=== PATIENT | male | born 1955 | race Caucasian/White ===

== ENCOUNTER 2021-08-25 08:36 | Outpatient (REF) | payer BC, SELFPAY ==
[2021-08-25 11:10] LABS: MANUAL DIFF FLAG NO
[2021-08-25 11:18] LABS: Basophils Percent Auto 0.5 % (0-2); Eosinophils Absolute Auto 0.1 X10*3/uL (0.0-0.4); Eosinophils Percent Auto 1.5 % (0-4); Hematocrit 43.3 % (42.0-52.0); Hemoglobin 14.2 g/dl (14.0-18.0); Imm Gran Abs Auto 0.01 X10*3/uL (0.00-0.03); Imm Gran Pct Auto 0.2 % (0.0-0.4); Lymphocytes Absolute Auto 1.8 X10*3/uL (1.2-4.9); Lymphocytes Percent Auto 31.2 % (20-40); Mean Corpuscular HGB Conc 32.8 g/dl (31.0-36.0); Mean Corpuscular Hemoglobin 31.4 pg (27.0-33.0); Mean Corpuscular Volume 95.8 fL (80.0-98.0); Mean Platelet Volume 11.5 fL (9.4-12.4); Monocytes Absolute Auto 0.6 X10*3/uL (0.1-1.2); Monocytes Percent Auto 9.8 % (2-11); Neutrophils Absolute Auto 3.3 x10*3/uL (2.0-8.3); Neutrophils Percent Auto 56.8 % (45-73); Platelet Count 273 X10*3/uL (160-400); Red Blood Count 4.52 X10*6/uL (4.60-5.80); Red Cell Distribution Width 12.8 % (11.0-16.0); White Blood Count 5.8 X10*3/uL (4.8-10.8)
[2021-08-25 11:25] LABS: Appearance Urine CLEAR; Color Urine YELLOW; Glucose Urine UA NEG (NEG); Leukocyte Esterase Urine NEG (NEG); Nitrite Urine NEG (NEG); Specific Gravity - Urine >= 1.030 (1.005-1.025); Urine Blood NEG (NEG); Urine Ketones NEG (NEG); Urine Protein NEG (NEG-TRACE)
[2021-08-25 12:07] LABS: Alanine Aminotransferase 19 U/L (0-40); Albumin Level 4.4 g/dL (3.5-5.0); Alkaline Phosphatase 78 U/L (39-117); Anion Gap 11 (12-20); Aspartate Amino Transferase 23 U/L (5-37); Bilirubin Total 0.6 mg/dL (0.0-1.0); Blood Urea Nitrogen 18 mg/dL (9-16); Calcium 10.5 mg/dL (8.4-10.2); Carbon Dioxide 28 mmol/L (22-29); Chloride 107 mmol/L (96-108); Cholesterol 183 mg/dL; Estimated Glomerular Filt Rate 56; Glucose Fasting 93 mg/dL (60-99); HDL Cholesterol 50 mg/dL; LDL Cholesterol Calculated 112 mg/dl; PSA,Total (Free>4and<10) 0.46 ng/mL (0.00-4.00); Potassium 4.4 mmol/L (3.3-5.1); Sodium 142 mmol/L (135-145); Thyroid Stimulating Hormone 1.72 uIU/mL (0.32-4.0); Total Protein 7.1 g/dL (6.5-8.0); Triglycerides 107 mg/dL; Vitamin D 25-OH Total 21.3 ng/mL (>30)
== END 2021-08-25 08:37 | disposition home or self-care (01) ==
LOC: HO.HMGCLDS 08:36
PROVIDERS: PCP Internal Medicine; Visit Provider Internal Medicine
DX: Z00.00 Encounter for general adult medical examination without abnormal findings (principal); Z12.5 Encounter for screening for malignant neoplasm of prostate; I10 Essential (primary) hypertension; E78.00 Pure hypercholesterolemia, unspecified
CPT/HCPCS: 36415; 80053; 80061; 81003; 82306; 84153; 84443; 85025

== ENCOUNTER 2024-03-14 09:25 | Inpatient (IN) | payer BC, SELFPAY ==
[2024-03-14] VITALS (18 sets, daily range): BP systolic 113–191; BP diastolic 61–105; PULSE 66–110; RESP 12–18; TEMP 36.3–36.8; O2SAT 95–99; BMI 21.2
--- NOTE | ~2024-03-14 | MR_ITS ---
EXAMINATION: MR BRAIN WITHOUT CONTRAST CLINICAL INFORMATION: Rule out stroke COMPARISON: CTA head and neck 03/14/2024 TECHNIQUE: Multiplanar multisequence MR imaging of the brain was obtained without intravenous contrast. FINDINGS: There is a small acute cortical and subcortical infarct involving the left precentral gyrus in the region of the hand knob. No other reduced diffusion. There is no intracranial hemorrhage on iron-sensitive imaging. No extra-axial collection or mass effect/herniation. There are several scattered foci of nonspecific supratentorial white matter T2/FLAIR signal abnormality. Small chronic left cerebellar lacunar infarct. No hydrocephalus. Mild generalized cerebral volume loss with commensurate sulcal and ventricular prominence. The major flow voids at the skull base are preserved. The midline structures are normal. The cerebellar tonsils are normally positioned. The craniocervical junction is normal. Marrow signal is within normal limits. The visualized soft tissues are without significant abnormality. The left maxillary sinus is completely opacified and atelectatic. MR/MR head/brain wo con IMPRESSION: Small acute infarct of the left precentral gyrus in the region of the hand knob.
--- NOTE | ~2024-03-14 | CT_ITS ---
EXAMINATION: CT angio head neck stroke CLINICAL INFORMATION: Right hand and weakness. COMPARISON: CT head 03/14/2024. TECHNIQUE: Hand Or Machine Paster images were obtained. A CT angiogram of the head and neck was performed in the arterial phase after the intravenous administration of 70 mL Omnipaque 350. Delayed postcontrast images of the head were also obtained. 3D images were processed on an independent workstation under concurrent supervision. Arterial stenoses are measured in accordance with NASCET criteria or similar method if applicable. This CT examination was performed using dose optimization techniques as appropriate, including one or more of the following: Automated exposure control, iterative reconstruction, and adjustment of technique factors (mA and/or kVp) according to patient size (this includes techniques or standardized protocols for targeted exams where dose is matched to indication/reason for exam). Fleischner Society criteria for the followup of incidental pulmonary nodules was implemented if appropriate. Total exam dose-length product 1429 mGy-cm FINDINGS: Head: Postcontrast images reveal no abnormal intracranial mass or enhancement. There is no intracranial mass effect or midline shift. Lateral and third ventricles are normal. No hydrocephalus. A few scattered nonspecific foci of hypoattenuation are visualized within the periventricular white matter and cerebellum. Smith-white matter differentiation is otherwise preserved and there is no evidence of acute territorial infarct. The calvarium and skull base are intact. Mastoid air cells and middle ear cavities are well aerated. The left maxillary sinus is completely opacified and atelectatic. CT angiogram neck: The aortic arch apex is normal. Origins of the major aortic branches are widely patent. Common carotid arteries are normal. Partially calcified atheromatous plaque involves both carotid bifurcations. There is a subtle beaded irregular contour of both extracranial internal carotid arteries and the cervical vertebral arteries at their the V2-V3 junctions suggesting the possibility of underlying fibromuscular dysplasia. No stenosis of the extracranial internal carotid arteries. The cervical segments of the vertebral arteries are widely patent. CT angiogram head: Intracranial internal carotid arteries are patent. Intradural vertebral artery segments and basilar artery are patent. Anterior, middle, and posterior cerebral artery complexes are normal. No intracranial large vessel occlusion. No identifiable aneurysm or high flow vascular lesion. Other: Soft tissues of the neck including the thyroid gland are normal. No pathologically enlarged cervical lymph nodes. Visualized lung apices are clear. No acute osseous finding. Specifically no worrisome lytic or blastic osseous lesion. There is multilevel degenerative spondylosis of the cervical spine with slight anterolisthesis of C7 on T1 related to facet degenerative changes at this level. CT/CT angio head neck stroke IMPRESSION: There are a few scattered chronic small vessel ischemic changes within the periventricular white matter and cerebellum. No evidence of acute territorial infarct or hemorrhage. No abnormal intracranial mass or enhancement. There is a subtle beaded irregular contour of both extracranial internal carotid arteries and the cervical vertebral arteries at their V2-V3 junctions suggesting the possibility of underlying fibromuscular dysplasia. Otherwise no stenosis of the cervical carotid or vertebral arteries. No intracranial large vessel occlusion. This critical result was discussed with Beatriz Luis at 10:09 AM on 03/14/2024 and it was ascertained that the content and urgency of the report was understood at the time of direct communication.
--- NOTE | ~2024-03-14 | CT_ITS ---
EXAMINATION: CT HEAD WITHOUT CONTRAST (STROKE PROTOCOL) CLINICAL INFORMATION: Stroke protocol. Right hand weakness COMPARISON: None available. TECHNIQUE: Contiguous axial imaging was performed from the skull base to vertex without intravenous administration of contrast. This CT examination was performed using dose optimization techniques as appropriate, variously including the following: *Automated exposure control *Adjustment of mA and/or kV according to patient size (this includes techniques or standardized protocols for targeted exams where dose is matched to indication/reason for exam; i.e. extremities or head) *Use of iterative reconstruction technique DLP: 617 mGy-cm FINDINGS: There is no evidence for an extra-axial collection. There is no evidence for intra-or extra-axial hemorrhage. The ventricles and extra-axial CSF spaces are appropriate. Smith-white matter differentiation is normal. No mass, mass effect or infarct is seen. Review of bone windows is normal. No skull fracture. There is a severe left maxillary sinus disease with complete soft tissue opacification. Sinuses mastoid air cells and middle ears are otherwise clear. CT/CT head for stroke IMPRESSION: No acute intracranial findings. Left maxillary sinus disease. This critical result was discussed with Dr. Kirkland at 0945 hours on 03/14/2024. It was ascertained that the content and urgency of the report was understood at the time of direct communication.
--- NOTE | 2024-03-14 07:00 | CA_ITS ---
Transthoracic Echocardiogram Patient (Last, First, Middle): Narinder Henriquez A Gender: Male Date of : 1955 Age: 68 Procedure Date: 03/14/2024 Procedure Type: Transthoracic Echocardiogram Location: ICU Height: 177.8 cm Weight: 66.68 kg BSA: 1.83 m2 Heart Rate: 77 bpm BP: 149 / 77 mmHg Intern Retail: STORM Referring MD: Vincent Soto MD Absorption Plant Operator Helper: Po Wilcox MD Symptoms: stroke Study Quality: Adequate ECG Rhythm: Sinus Conclusions: - 1. Normal LV ejection fraction of 60 65% 2. Mild calcific changes of the aortic and mitral valve with normal cardiac valvular Doppler 3. Mildly dilated ascending aorta 4. No gross pericardial effusion Findings Left Ventricle Normal left ventricular size, thickness, and systolic function. The visually estimated ejection fraction is between 60-65%. Spectral Doppler is indicative of a normal filling pattern. Right Ventricle Normal right ventricular cavity size and systolic function. Atria Both atria are normal in size. Interatrial shunt cannot be excluded. Aortic Valve There is mild calcification of the aortic valve. There is no aortic valve stenosis. There is no aortic valve regurgitation. Mitral Valve There is mild anterior and posterior mitral leaflet thickening. There is mild mitral annular calcification. There is trace mitral valve regurgitation. There is no mitral valve stenosis. Pulmonic Valve The pulmonic valve was not well visualized. Tricuspid Valve Likely normal tricuspid valve structure and function. There is trace tricuspid valve regurgitation. The right ventricular systolic pressure is normal. The right ventricular systolic pressure is 15 mmHg. Normal right atrial pressure. There is no evidence of pulmonary hypertension. Great Vessels The aorta was not well visualized. The pulmonary artery was not well visualized. Venous The inferior vena cava is normal in size and collapses greater than 50% with inspiration. Pericardium/Pleural There is no evidence of pericardial effusion. Prior Study Comparison No prior study available for comparison. Measurements 2D Linear Measurements IVSd: 1.05 0.6-0.9/0.6-1.0 cm LVIDd: 4.07 3.9-5.3/4.2-5.9 cm LVIDd Index: 2.22 2.4-3.2/2.2-3.1 cm/m2 LVIDs: 2.51 2.0-3.6 cm LVPWd: 0.57 0.7-1.1 cm LA Diam: 3.00 2.7-3.8/3.0-4.0 cm LAIDs Index: 1.64 1.5-2.3 cm/m2 LV Mass: 121.67 67-162/88-224 g LV Mass Index: 66.49 43-95/49-115 g/m2 LVOT Diam: 2.30 3.0+(-)1.3 cm 2D Systolic Function EF 4C: 60.30 >55% EF 2C: 65.10 >55% EF BiP: 62.20 >55% Mitral Valve MV Pk E: 0.76 MV PK A: 0.49 MV Decel Time: 189.00 E/A: 1.50 E'Lateral: 11.40 E'Medial: 7.83 E/E' Med: 9.70 E/E' Lat: 6.60 PHT: 55.00 MVA PHT: 4.00 Decel [place]: 4.02 Aortic Valve AoV Pk Jaylon: 1.15 AoV Pk Grad: 5.00 MONSERRAT: 3.83 LVOT LVOT Pk Jaylon: 1.03 LVOT Mn Jaylon: 0.68 LVOT VTI: 0.23 LVOT Pk Grad: 4.00 LVOT Mn Grad: 2.00 LVOT Diam: 2.30 LVOT Area: 4.15 Diastolic Function MV Pk E: 0.76 MV Pk A: 0.49 E/A: 1.50 E'Medial: 7.83 E/E' Med: 9.70 E' Laterial: 11.40 E/E' Lat: 6.60 Right Ventricle TAPSE (mm): 24.80 TVS' Jaylon: 15.50 Tricuspid Valve TR Pk Jaylon: 1.73 TR Pk Grad: 12.00 RA Press: 3.00 RVSP: 15.00 Great Vessels Aorta Sinus of Valsalva: 3.40 2.0-3.5 cm Ao Asc: 3.70 2.1-3.4 cm Ao Arch: 2.30 Ao Desc: 2.10 Pulmonary Veins Pulm Vein S/D 1.50 Pulmonary Valve PV Pk Jaylon: 0.95 Peak PV Grad: 4.00 Updated in Other Vendor System with Status of Final Po Wilcox MD electronically signed on 03/14/2024 2:59:24 PM with status of Final
--- NOTE | 2024-03-14 09:33 | ECG_ITS ---
Test Reason : r/O Stroke Blood Pressure : / mmHG Vent. Rate : 087 BPM Atrial Rate : 087 BPM P-R Int : 156 ms QRS Dur : 090 ms QT Int : 360 ms P-R-T Axes : 081 049 053 degrees QTc Int : 433 ms Normal sinus rhythm with sinus arrhythmia Nonspecific ST abnormality Abnormal ECG No previous ECGs available Referred By: Beatriz Luis Electronically Signed By:BOBBY MIRELES MD
--- NOTE | 2024-03-14 09:35 | ED_ITS ---
HPI - Neuro Symptoms/Deficit General Chief Complaint: Stroke Stated Complaint: feels like having a stroke r hand unable to photographer Time Seen by Provider: 03/14/24 09:32 Source: patient Mode of arrival: ambulatory Limitations: no limitations History of Present Illness ED Provider: LAUREL SMITH Narrative: 68 yo male with HTN and HLD not on thinners woke up this AM around 630am feeling fine made tea and watched TV then noted around 830am he had abrupt onset R hand weakness and unable to grasp or hold his mug. This has never happened before. He has no headaches, trauma, hx of carpal tunnel. He has never had a stroke before but is worried. He is R hand dominant. He has no dizziness when walking. No slurred speech and no headache. Onset (ago): hour(s) (830am) Last Observed Normal: 08:30 Location: right arm History of same: No Severity: moderate Quality: weak Relieving factors: none Exacerbating factors: none Context: sudden onset On Anticoagulants: No Associated symptoms: denies other symptoms Treatments Prior to Arrival: none Related Data Allergies Allergy/AdvReac Type Severity Reaction Status Date / Time No Known Allergies Allergy Verified 03/14/24 09:59 Review of Systems 2 Review of Systems: Constitutional : No Fever, No Chills, No Fatigue ENT/Mouth : No sore throat, No Rhinorrhea Eyes: No Eye Pain, No Swelling, No Redness Cardiovascular : No Chest Pain, No SOB, No Dyspnea on Exertion Respiratory : No Cough, No Sputum Gastrointestinal : No Nausea, No Vomiting, No Diarrhea, No abdominal Pain Genitourinary : No Dysuria, No Urinary Frequency, No Hematuria, Musculoskeletal : No joint pain, No Myalgias, No Joint Swelling Skin : No Skin Lesions, No rash Neuro : pos Weakness, No Numbness, No Dizziness, no Headache Psych : No Anxiety/Panic, No Depression All other systems reviewed and are negative [facility] Past Medical History Attestation statement: The following information was validated with the patient. Medical History Hyperlipidemia HTN (hypertension) Social History Social History (Updated 03/14/24 @ 09:56 by Beatriz Luis DO) Patient Tobacco Use Status: Never used Tobacco Physical Exam 2 Vital Signs: Vital Signs: Last Vital Signs Temp 97.6 F 03/14/24 10:05 Pulse 96 03/14/24 10:05 Resp 15 03/14/24 10:05 BP 165/83 H 03/14/24 10:05 Pulse Ox 99 03/14/24 10:05 O2 Del Method Room Air 03/14/24 10:05 BMI result Body Mass Index 21.2 Appearance: Alert. Oriented X3. No acute distress. Eyes: Pupils equal, round and reactive to light. ENT: Pharynx normal. Neck: Normal inspection. Neck supple. CVS: Normal heart rate and rhythm. Pulses normal. Respiratory: No respiratory distress. Breath sounds normal. Abdomen: Soft and nontender. Skin: Skin warm and dry. Normal skin color. Normal skin turgor. Extremities: No lower extremity edema. No calf ttp Neuro: Oriented X 3. R hand noticeably weaker sensation intact BRC in all digits 2+ radial pulse No sensory deficit. CN2-12 intact Course Course Course Narrative: BP 190/100 initial on recheck (initial done during IV line) 140 systolic and diastolic in 80s coags normal no hx of bleeding discussed TNK with him will order - there are no known contraindications or risks of bleeding after discussion with patient Dr. Andrews aware give TNK given onset known weakness 951am Reevaluation(s) Reevaluation #1: BP stable the patient is improving no longer using shoulder to improve still slight weakness R hand but improving Medications Administered Discontinued Medications Generic Name Dose Route Start Last Admin Trade Name Freq PRN Reason Stop Dose Admin Iohexol 100 ml 03/14/24 09:58 03/14/24 09:58 Iohexol 350 Mg/Ml 100 Ml Infus..Btl IV 03/14/24 09:59 70 ml ONCE ONE Administration Labetalol HCl 10 mg 03/14/24 09:39 03/14/24 10:08 Labetalol Hcl 100 Mg/20 Ml Vial IVPUSH 03/14/24 09:40 Not Given ONCE ONE Tenecteplase 17 mg 03/14/24 09:42 03/14/24 10:09 Tenecteplase 50 Mg/10 Ml Kit IVPUSH 03/14/24 09:43 17 mg ONCE ONE Administration Medical Decision Making Medical Decision Making MDM Narrative: 68 yo male with PMH of HTN, HLD here with onset of R hand weakness which is dominant hand at 830am - he was fine upon waking and noticed it trying to grab his mug. He has no other symptoms he is not on blood thinners, normal pulse, no signs of infection, no numbness on exam, no wrist drop. He is using his shoulder to try to pull you in and grasp he has NIH of 2 - stroke protocol, neuro consult, possible TNK Differential Diagnosis Differential Diagnoses: The differential diagnosis associated with the presentation includes stroke, doubt peripheral cause has no numbness, pulses intact BCR was acute in onset Admission/Observation Consideration of admission/observation: Escalation of care including admission/observation considered admit to ICU Consult Healthcare Provider Management of the patient was discussed with: Non Destructive Testing Inspector call to neurology 944am Dr. Soto to admit patient Lab Data [facility] Lab Attestation statement: I reviewed the patient's lab results. 03/14/24 09:39 03/14/24 09:39 Labs: Lab Results 03/14/24 03/14/24 03/14/24 Range/Units 09:32 09:33 09:39 WBC 5.4 (4.8-10.8) X10*3/uL RBC 4.74 (4.60-5.80) X10*6/uL Hgb 15.2 (14.0-18.0) g/dl Hct 44.3 (42.0-52.0) % MCV 93.5 (80.0-98.0) fL MCH 32.1 (27.0-33.0) pg MCHC 34.3 (31.0-36.0) g/dl RDW 12.9 (11.0-16.0) % Plt Count 284 (160-400) X10*3/uL MPV 10.5 (9.4-12.4) fL Immature Gran % (Auto) 0.2 (0.0-0.4) % Neut % (Auto) 58.7 (45-73) % Lymph % (Auto) 31.6 (20-40) % [place] % (Auto) 7.5 (2-11) % Eos % (Auto) 1.1 (0-4) % Baso % (Auto) 0.9 (0-2) % Lymph # (Auto) 1.7 (1.2-4.9) X10*3/uL [place] # (Auto) 0.4 (0.1-1.2) X10*3/uL Eos # (Auto) 0.1 (0.0-0.4) X10*3/uL Baso # (Auto) 0.1 (0.0-0.2) X10*3/uL Abs Immat Gran (auto) 0.01 (0.00-0.03) X10*3/uL Absolute Neuts (auto) 3.2 (2.0-8.3) x10*3/uL Absolute Nucleated RBC 0.000 (0.0-0.012) X10*3/uL Nucleated RBC % (auto) 0.0 (0.0-0.2) /100WBC PT 10.9 L (11.1-13.3) SEC Whole Blood PT 12.3 (11.1-13.5) sec INR 0.9 (0.9-1.1) Whole Blood INR 1.0 (0.9-1.1) APTT 34.5 (26.0-36.8) SEC Sodium 141 (135-145) mmol/L Potassium 4.2 (3.3-5.1) mmol/L Chloride 106 (96-108) mmol/L Carbon Dioxide 27 (22-29) mmol/L Anion Gap 12 (12-20) BUN 19 H (9-16) mg/dL Creatinine 1.34 (0.5-1.4) mg/dL Estim Creat Clear Calc 48.6 Estimated GFR 53 POC Glucose 113 (60-115) mg/dL Random Glucose 121 H (60-115) mg/dL Estimat Average Glucose 108 mg/dL Hemoglobin A1c % 5.4 (<6.0) % Calcium 11.2 H D (8.4-10.2) mg/dL Magnesium 2.1 (1.6-2.6) mg/dL Total Bilirubin 0.7 (0.0-1.0) mg/dL Direct Bilirubin 0.2 (0.0-0.5) mg/dL AST 25 (5-37) U/L ALT 21 (0-40) U/L Alkaline Phosphatase 71 (39-117) U/L C-Reactive Protein < 0.04 (< or = 0.50) mg/dL Total Protein 7.5 (6.5-8.0) g/dL Albumin 4.6 (3.5-5.0) g/dL Triglycerides 107 (<150) mg/dL Cholesterol 194 (<200) mg/dL LDL Cholesterol, Calc 118 H (<100) mg/dL HDL Cholesterol 55 (>40) mg/dL Independent Interpretation I performed an independent interpretation of an: EKG and CT Scan Interpretation: Rate: 87 Rhythm: NSR [place]: normal Normal P waves. Normal AYAZ. Normal QRS complex. ST T wave : nonspecific ST T wave abnormality in lateral leads but no MARYELLEN qTC: 433 prior studies: no acute ischemia The study has been interpreted contemporaneously by me. . Radiology Impression Discussion of test interpretation with radiology: I discussed test interpretation with the radiologist and I have reviewed the radiologist's reading. Radiologist Impression: 944am - initial non CT head negative no ICH bad L mastoid sinus disease 1009am CTA negative for LVO Independent Historian Clinical information obtained from an independent historian. History obtained from or confirmed by: Spouse NIH Stroke Scale Internal: Initial- Upon Arrival Level of Consciousness: Alert Level of Consciousness Questions: Answers both questions correctly Level of Consciousness Commands: Performs both tasks correctly Best Gaze: Normal Visual: No visual loss Facial Palsy: Normal Motor Arm (Right): Some effort against gravity Motor Arm (Left): No drift Motor Leg (Right): No drift Motor Leg (Left): No drift Limb Ataxia: Absent Sensory: Normal Best Language: No aphasia Dysarthia: Normal Extinction and Inattention: No abnormality Score: 2 Critical Care Time Critical Care Time Critical Care Time: Yes Total Critical Care Time: 35 Attestation: stroke protocol, consult, admit to ICU Discharge Plan Discharge Clinical Impression: Right arm weakness Patient Disposition: Admitted As Inpatient Print Language: Romanian
[2024-03-14 09:38] LABS: Glucose, Whole Blood 113 mg/dL (60-115)
[2024-03-14 09:39] LABS: Prothrombin Time Whole Bld POC 12.3 sec (11.1-13.5)
[2024-03-14 09:49] LABS: MANUAL DIFF FLAG NO
[2024-03-14 09:50] LABS: Basophils Absolute Auto 0.1 X10*3/uL (0.0-0.2); Basophils Percent Auto 0.9 % (0-2); Eosinophils Absolute Auto 0.1 X10*3/uL (0.0-0.4); Eosinophils Percent Auto 1.1 % (0-4); Hematocrit 44.3 % (42.0-52.0); Hemoglobin 15.2 g/dl (14.0-18.0); Imm Gran Abs Auto 0.01 X10*3/uL (0.00-0.03); Imm Gran Pct Auto 0.2 % (0.0-0.4); Lymphocytes Absolute Auto 1.7 X10*3/uL (1.2-4.9); Lymphocytes Percent Auto 31.6 % (20-40); Mean Corpuscular HGB Conc 34.3 g/dl (31.0-36.0); Mean Corpuscular Hemoglobin 32.1 pg (27.0-33.0); Mean Corpuscular Volume 93.5 fL (80.0-98.0); Mean Platelet Volume 10.5 fL (9.4-12.4); Monocytes Absolute Auto 0.4 X10*3/uL (0.1-1.2); Monocytes Percent Auto 7.5 % (2-11); Neutrophils Absolute Auto 3.2 x10*3/uL (2.0-8.3); Neutrophils Percent Auto 58.7 % (45-73); Platelet Count 284 X10*3/uL (160-400); Red Blood Count 4.74 X10*6/uL (4.60-5.80); Red Cell Distribution Width 12.9 % (11.0-16.0); White Blood Count 5.4 X10*3/uL (4.8-10.8)
[2024-03-14] MEDS: Tenecteplase 50 MG/10 ML KIT 17 MG IVPUSH (09:53)
[2024-03-14] MEDS: iohexoL 350 MG/ML 100 ML INFUS..BTL IV (09:58)
[2024-03-14 10:00] LABS: INTERNATIONAL NORM RATIO 0.9 (0.9-1.1); Partial Thromboplastin Time 34.5 SEC (26.0-36.8); Prothrombin Time 10.9 SEC (11.1-13.3)
[2024-03-14 10:11] LABS: Alanine Aminotransferase 21 U/L (0-40); Albumin Level 4.6 g/dL (3.5-5.0); Alkaline Phosphatase 71 U/L (39-117); Anion Gap 12 (12-20); Aspartate Amino Transferase 25 U/L (5-37); Bilirubin Direct 0.2 mg/dL (0.0-0.5); Bilirubin Total 0.7 mg/dL (0.0-1.0); Blood Urea Nitrogen 19 mg/dL (9-16); C Reactive Protein < 0.04 mg/dL (< or = 0.50); Calcium 11.2 mg/dL (8.4-10.2); Carbon Dioxide 27 mmol/L (22-29); Chloride 106 mmol/L (96-108); Cholesterol 194 mg/dL (<200); Creatinine Clr Calc Pharmacy 48.6; Estimated Average Glucose 108 mg/dL; Estimated Glomerular Filt Rate 53; Glucose Random 121 mg/dL (60-115); HDL Cholesterol 55 mg/dL (>40); Hemoglobin A1c % 5.4 % (<6.0); LDL Cholesterol Calculated 118 mg/dL (<100); Magnesium 2.1 mg/dL (1.6-2.6); Potassium 4.2 mmol/L (3.3-5.1); Sodium 141 mmol/L (135-145); Total Protein 7.5 g/dL (6.5-8.0); Triglycerides 107 mg/dL (<150)
--- OUTSIDE RECORDS SUMMARY | 2024-03-14 10:20 | XMS_ITS | Patient Health Record ---
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 Name Role Phone Ki Charlton DO Primary Care Provider Unavail able Ki Charlton Unavailable [phone] ALLERGIES No Known Allergies RESULTS Component Value Reference Range Notes Complete Blood Count Auto Di ff (Not yet reviewed by provider) Interpretation: Performing Lab:[facility], [address] [place] [phone] Notes/Report: White Blood Count 5.4 4.8-10.8 X10*3/uL Red Blood Count 4.74 4.60-5.80 X10*6/uL Hemoglobin 15.2 14.0-18.0 g/dl Hematocrit 44.3 42.0-52.0 % Mean Corpuscular Volume 93.5 80.0-98.0 fL Mean Corpuscular Hemoglobin 32.1 27.0-33.0 pg Mean Corpuscular HGB Conc 34.3 31.0-36.0 g/dl Red Cell Distribution Width 12.9 11.0-16.0 % Platelet Count 284 160-400 X10*3/uL Mean Platelet Volume 10.5 9.4-12.4 fL Neutrophils Percent Auto 58.7 45-73 % Imm Gran Pct Auto 0.2 0.0-0.4 % Lymphocytes Percent Auto 31.6 20-40 % Monocytes Percent Auto 7.5 2-11 % Eosinophils Percent Auto 1.1 0-4 % Basophils Percent Auto 0.9 0-2 % NRBC Pct Auto 0.0 0.0-0.2 /100WBC Neutrophils Absolute Auto 3.2 2.0-8.3 x10*3/u L Imm Gran Abs Auto 0.01 0.00-0.03 X10*3/uL Lymphocytes Absolute Auto 1.7 1.2-4.9 X10*3/u L Monocytes Absolute Auto 0.4 0.1-1.2 X10*3/uL Eosinophils Absolute Auto 0.1 0.0-0.4 X10*3/u L Basophils Absolute Auto 0.1 0.0-0.2 X10*3/uL NRBC Abs Auto 0.000 0.0-0.012 X10*3/uL Prothrombin Time INR (Not ye t reviewed by provider) Interpretation: Performing Lab:[address] [phone] Notes/Report: Prothrombin Time 10.9 11.1-13.3 SEC INTERNATIONAL NORM RATIO 0.9 0.9-1.1 INTERNATIONAL NORMALIZED RATIO (INR) REFERENCE RANGES Reference Range For patients not on anticoagulant therapy: 0.9 - 1.1 INR ranges for oral anticoagulant therapy: For prevention and treatment of venous thrombosis and pulmonary embolism: 2.0 - 3.0 For acute myocardial infarction with aspirin therapy: 2.0 - 3.0 For acute myocardial infarction without aspirin therapy: 3.0 - 4.0 For patients with mechanical prosthetic heart valves: 2.5 - 3.5 Partial Thromboplastin Time (Not yet reviewed by provider) Interpretation: Performing Lab:[address] [phone] Notes/Report: Partial Thromboplastin Time 34.5 26.0-36.8 SEC For information regarding the monitoring of direct thrombin inhibitors, please refer to Pharmacy. Liver Panel (Not yet reviewe d by provider) Interpretation: Performing Lab:[facility], [address] [place] [phone] Notes/Report: Bilirubin Total 0.7 0.0-1.0 mg/dL Bilirubin Direct 0.2 0.0-0.5 mg/dL Aspartate Amino Transferase 25 5-37 U/L Alanine Aminotransferase 21 0-40 U/L Total Protein 7.5 6.5-8.0 g/dL Albumin Level 4.6 3.5-5.0 g/dL Alkaline Phosphatase 71 39-117 U/L Basic Metabolic Panel (Not y et reviewed by provider) Interpretation: Performing Lab:[facility], [address] [place] [phone] Notes/Report: Sodium 141 135-145 mmol/L Potassium 4.2 3.3-5.1 mmol/L Chloride 106 96-108 mmol/L Carbon Dioxide 27 22-29 mmol/L Anion Gap 12 12-20 Blood Urea Nitrogen 19 9-16 mg/dL Creatinine 1.34 0.5-1.4 mg/dL Creatinine Clr Calc Pharmacy 48.6 eGFR (calculated from the MDRD study equation) and eCrCl (calculated from the Cockcroft-Gault equation) are based on different parameters and may not yield comparable results. If eCrCl result is absurd, please check patient's height/weight. Estimated Glomerular Filt Rate 53 NOTE: For -Kosovan individuals, multiply the result by 1.210. Chronic Kidney Disease: Estimated GFR < 60 mL/min/1.73m2 Severe Kidney Disease: Estimated GFR < 15 mL/min/1.73m2 Glucose Random 121 60-115 mg/dL Calcium 11.2 8.4-10.2 mg/dL Magnesium (Not yet reviewed by provider) Interpretation: Performing Lab:[facility], [address] [place] [phone] Notes/Report: Magnesium 2.1 1.6-2.6 mg/dL C Reactive Protein (Not yet reviewed by provider) Interpretation: Performing Lab:[facility], [address] [place] [phone] Notes/Report: C Reactive Protein < 0.04 < or = 0.50 mg/dL Lipid Panel (Not yet reviewe d by provider) Interpretation: Performing Lab:[facility], [address] [place] [phone] Notes/Report: Triglycerides 107 <150 mg/dL Desirable Triglyceride: less than 150 mg/dL Borderline High Triglyceride 150-199 mg/dL High Triglyceride: 200-499 mg/dL Very High Triglyceride: greater than or equal to 5OO mg/dL Cholesterol 194 <200 mg/dL Desirable Cholesterol: less than 200 mg/dL Borderline High Cholesterol: 200-239 mg/dL High Cholesterol: greater than 239 mg/dL LDL Cholesterol Calculated 118 <100 mg/dL Desirable LDL: less than 100 mg/dL Near Optimal/Above Optimal LDL: 110-129 mg/dL Borderline High LDL: 130-159 mg/dL High LDL: 160-189 mg/dL Very High LDL: greater than or equal to 190 mg/dL HDL Cholesterol 55 >40 mg/dL Desirable HDL: greater than 40 mg/dL Note: This HDL assay may give artificially low results in patients with liver disease. INR WHOLE BLOOD POC (Not yet reviewed by provider) Interpretation: Performing Lab:[facility], [address] [place] [phone] Notes/Report: PT, INR - Anti Coag Clinic 1.0 0.9-1.1 METER #: [id number] INTERNATIONAL NORMALIZED RATIO (INR) REFERENCE RANGES Reference Range For patients not on anticoagulant therapy: 0.9 - 1.1 INR ranges for oral anticoagulant therapy: For prevention and treatment of venous thrombosis and pulmonary embolism: 2.0 - 3.0 For acute myocardial infarction with aspirin therapy: 2.0 - 3.0 For acute myocardial infarction without aspirin therapy: 3.0 - 4.0 For patients with mechanical prosthetic heart valves: 2.5 - 3.5 Prothrombin Time Whole Bld P OC (Not yet reviewed by provider) Interpretation: Performing Lab:[facility], [address] [place] [phone] Notes/Report: Prothrombin Time Whole Bld POC 12.3 11.1-13.5 sec Glucose, Whole Blood (Not ye t reviewed by provider) Interpretation: Performing Lab:[facility], [address] [place] [phone] Notes/Report: Glucose, Whole Blood 113 60-115 mg/dL METER # : [id number] Hemoglobin A1c (Not yet revi ewed by provider) Interpretation: Performing Lab:[facility], [address] [place] [phone] Notes/Report: Hemoglobin A1c % 5.4 <6.0 % Hemoglobin A1C Reference Range Adults: 4.8 - 6.0 % Non diabetic: < 6.0 % Goal: < 7.0 % Additional Action Suggested: > 8.0 % Note: Hemoglobin A1c results are invalid for patients with abnormal amounts of HbF. Blood transfusions may impact the HbA1c concentration in the patient sample. Estimated Average Glucose 108 eAG = Estimated average glucose which is %A1C expressed as average glucose, using the formula of the [id number] Average Glucose study (ADAG), Diabetes Care, Vol.31,#8, Apr. 2007 CT head for stroke (Not yet reviewed by provider) Interpretation: Performing Lab: Notes/Report: [address] [address] [address] Scan Report Signed Patient: Narinder Henriquez MR#: [id number] 0 : 1955 Acct:[id number] Age/Sex: 68 / M ADM Date: 03/14/24 Loc: HO.ED Attending Dr: Ordering Physician: Beatriz Luis DO Date of Service: 03/14/24 Procedure(s): CT head for stroke Accession Number(s): [id number] cc: Beatriz Luis DO; Ki Charlton DO EXAMINATION: CT HEAD WITHOUT CONTRAST (STROKE PROTOCOL) CLINICAL INFORMATION: Stroke protocol. Right hand weakness COMPARISON: None available. TECHNIQUE: Contiguous axial imaging was performed from the skull base to vertex without intravenous administration of contrast. This CT examination was performed using dose optimization techniques as appropriate, variously including the following: *Automated exposure control *Adjustment of mA and/or kV according to patient size (this includes techniques or standardized protocols for targeted exams where dose is matched to indication/reason for exam; i.e. extremities or head) *Use of iterative reconstruction technique DLP: 617 mGy-cm FINDINGS: There is no evidence for an extra-axial collection. There is no evidence for intra-or extra-axial hemorrhage. The ventricles and extra-axial CSF spaces are appropriate. Smith-white matter differentiation is normal. No mass, mass effect or infarct is seen. Review of bone windows is normal. No skull fracture. There is a severe left maxillary sinus disease with complete soft tissue opacification. Sinuses mastoid air cells and middle ears are otherwise clear. CT/CT head for stroke IMPRESSION: No acute intracranial findings. Left maxillary sinus disease. This critical result was discussed with Dr. Kirkland at 0945 hours on 03/14/2024. It was ascertained that the content and urgency of the report was understood at the time of direct communication. Dictated By: Regine Cain MD Signed By: <Electronically signed by Regine Cain MD in OV> 03/14/2447 DD/ 0938 TD/TT: Service Center Coordinator: PRABHAKAR REASON FOR REFERRAL No Information MEDICATIONS Medication SIG (Take, Route, Frequency, Duration) Notes Start Date End Date Status Atenolol 25 MG 1 tablet Orally Once a day Active Pravastatin Sodium 40 MG 1 tablet Orally Once a day Active Multivitamins 1 tablet Orally Once a day Active Vitamin D (Cholecalciferol) 50 MCG (1999 UT) 1 capsule Orally Once a day 09/20/2021 Active IMMUNIZATIONS Vaccine Route Administration Date Status Comme nts Influenza High Dose IM Intramuscular 07/07/2021 Administer ed COVID-19 Moderna Vaccine Unknown 11/19/2020 Administere d COVID-19 Moderna Vaccine Unknown 07/22/2021 Administere d Influenza High Dose IM Intramuscular 06/27/2022 Administer ed Influenza High Dose IM Intramuscular 06/19/2023 Administer ed SOCIAL HISTORY Tobacco Use: Social History Observation Description Date Details (start date - stop date) Never Smoker NA - NA Sex Assigned At : Social History Observation Description Sex Assigned At Male Tobacco Use/Smoking Question Answer Notes Patient is a nonsmoker Additional Findings: Tobacco Non-User Cu rrent non-smoker, currently using no form of tobacco Alcohol Screen Question Answer Notes Did you have a drink contain ing alcohol in the past year? Yes How often did you have a dri nk containing alcohol in the past year? Monthly or less (1 point) How many drinks did you have on a typical day when you were drinking in the past year? 1 or 2 drinks (0 point) How often did you have 6 or more drinks on one occasion in the past year? Never (0 point) Points 1 Interpretation Negative PROBLEMS Problem Type ICD Code Onset Dates Problem Status W/U Status Risk SNOMED Code Notes Problem Vitamin D deficiency (E55.9) Active confirmed 62617838 Problem Essential hypertensi on (I10) Active confirmed 47432524 Problem Hypercholesterolemia (E78.00) Active confirmed 19878045 Encounters Encounter Location Date Provider Diagnosis Ki Charlton DO, [facility] [address], [place] [phone] 06/19/2023 Ki Charlton Need for influenza vaccination Z23 Ki Charlton DO, [facility] [address], [place] [phone] 03/14/2024 Ki Charlton ASSESSMENTS Encounter Date Diagnosis Assessment Notes Treatment Notes Treatment Clinical Notes 06/19/2023 Need for influenza vaccination (ICD-10 - Z23) high dose quadrivalent influenza vaccination given without adversity, left arm PLAN OF TREATMENT Pending Test Test Name Order Date CBC w DIFF 10/18/2022 LIPOPROTEIN FRACTIONATION (LIPID PANEL) 10/18/2022 PROFILE, FASTING 10/18/2022 TSH (THYROID STIMULATING HORMONE) 2022 VITAMIN D 25-OH TOTAL 10/18/2022 Complete Blood Count Auto Diff Prothrombin Time INR 03/14/2024 Partial Thromboplastin Time 03/14/2024 Urinalysis and Microscopic 10/18/2022 Liver Panel 03/14/2024 Basic Metabolic Panel 03/14/2024 Magnesium 03/14/2024 C Reactive Protein 03/14/2024 Lipid Panel 03/14/2024 PSA,Total (Free>4and<10) 10/18/2022 PTHI 10/18/2022 INR WHOLE BLOOD POC 03/14/2024 Prothrombin Time Whole Bld POC Glucose, Whole Blood 03/14/2024 CT head for stroke 03/14/2024 Hemoglobin A1c 03/14/2024 Insurance Providers Payer Name Payer Address Payer Phone Subscriber Number Group Number Insured Name Patient Relationship to Insured Coverage Start Date Coverage End Date [facility] [address] [place], [place] [id number] Narinder Henriquez Self - patient is the insured MEDICAL (GENERAL) HISTORY Medical History History ICD Code hypertension hypercholesterolemia basal cell carcinoma branch retinal vein occlusion OS Surgical History Surgery Date(Month/Year) tonsillectomy wisdom teeth extraction
--- NOTE | 2024-03-14 10:21 | MHC.STROKE ---
Stroke alert called on patient. Pt was in CT scan when I arrived. Pt awake, alert and oriented x 3. Pt reports feeling well yesterday. Woke this am around 0630 and felt well. 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 This is the patient's dominant hand. NIH 2. Dr. Luis spoke with Dr. Andrews and it was decided to proceed with TNK. BP within normal range and TNK was administered at 0953 No other neuro deficits noted other than the weakness to the right hand. Hand grasp was noticeably weaker when attempting to grasp. Stroke Education provided to patient and Kerri. Will continue to assist as needed.
[2024-03-14 10:27] LABS: Troponin-I High Sensitivity < 2.7 ng/L (<3.5-35.0)
[2024-03-14 10:38] LABS: Erythrocyte Sedimentation Rate 3 MM/HR (0-15)
[2024-03-14] MEDS: Lactated Ringers 1,000 ML 100 ML IVCONT ×2 (10:45→20:37)
--- NOTE | 2024-03-14 10:50 | MHC.STROKE ---
Dr. Andrews met with patient and . Assessment performed at bedside. Pt/ aware and agreeable to ED care plan.
--- NOTE | 2024-03-14 10:54 | P.CNNE_ITS ---
History of Present Illness Data of Consult Service Date: 03/14/24 Primary Care Provider: Ki Charlton DO HPI Reason for consult: Stroke 68 years old man with underlying history of hypertension woke up normal this morning. Later, when he was having a drink he suddenly noted that his right hand was not working. It became weak and lethargic. He came to hospital and was noted to have right hand weakness. There was no headache or neck pain. His blood pressure was high and it was treated. After that, with tentative diagnosis of ischemic infarction causing weakness of his dominant hand, he was treated with TNK. I saw him afterwards and he was feeling better though his hand was still not normal. Review of Systems 2 Review of Systems: No neck pain or headache or recent trauma. [facility] Past Medical History Medical History Hyperlipidemia HTN (hypertension) Social History Social History (Updated 03/14/24 @ 09:56 by Beatriz Luis DO) Household Members: Spouse, Family and Children Housing: House Do you presently have visiting nurse or other home services: No Patient Tobacco Use Status: Never used Tobacco Meds Allergies Allergy/AdvReac Type Severity Reaction Status Date / Time No Known Allergies Allergy Verified 03/14/24 09:59 Active Medications: Current Medications Acetaminophen (Acetaminophen 325 Mg Tablet) 650 mg PO Q6H PRN PRN Reason: Pain, Mild (Pain Scale 1-3) Famotidine (Famotidine/Pf 20 Mg/2 Ml Vial) 20 mg IVPUSH BID ANNELISE Lactated Ringer's (Lr) 1,000 mls @ 100 mls/hr IVCONT .Q10H ANNELISE Last Admin: 03/14/24 10:45 Dose: 100 mls/hr Home Medications ?Medication ?Instructions ?Recorded ?Confirmed ?Last Taken ?Type atenolol 25 mg tablet 25 mg PO DAILY 03/14/24 03/14/24 03/13/24 History multivitamin 1 tab PO DAILY 03/14/24 03/14/24 03/13/24 History pravastatin 40 mg tablet 40 mg PO DAILY 03/14/24 03/14/24 03/13/24 History Physical Exam 2 Vital Signs: Vital Signs: Last Vital Signs Temp 97.6 F 03/14/24 10:05 Pulse 78 03/14/24 10:47 Resp 14 03/14/24 10:47 BP 148/82 H 03/14/24 10:47 Pulse Ox 96 03/14/24 10:47 O2 Del Method Room Air 03/14/24 10:47 BMI result Body Mass Index 21.2 Neuro: Other: He is alert and awake with normal spontaneity of speech fluency comprehension and affect. Face is symmetrical. Visual gonzales are full. There is mild right pronator drift. Right hand is slightly weak compared to left. Finger tapping is slow in right hand. Fine finger movements are slow in right hand. There is no sensory extinction. Plantars are flexor. There was no leg weakness. Speech is normal. Results Labs 03/14/24 09:39 03/14/24 09:39 Labs: Short CBC 03/14/24 Range/Units 09:39 WBC 5.4 (4.8-10.8) X10*3/uL Hgb 15.2 (14.0-18.0) g/dl Hct 44.3 (42.0-52.0) % Plt Count 284 (160-400) X10*3/uL BMP 03/14/24 09:39 Sodium 141 Potassium 4.2 Chloride 106 Carbon Dioxide 27 BUN 19 H Creatinine 1.34 Calcium 11.2 H D Liver Function 03/14/24 Range/Units 09:39 Total Bilirubin 0.7 (0.0-1.0) mg/dL Direct Bilirubin 0.2 (0.0-0.5) mg/dL AST 25 (5-37) U/L ALT 21 (0-40) U/L Alkaline Phosphatase 71 (39-117) U/L Albumin 4.6 (3.5-5.0) g/dL His head CT revealed mild cerebral atrophy. CTA was suggestive of fibromuscular dysplasia Assessment and Plan (1) Cerebral infarction: Qualifiers: Cerebral infarction mechanism: embolism Precerebral and cerebral artery: middle cerebral artery Laterality of affected vessel: left Qualified Code(s): I63.412 - Cerebral infarction due to embolism of left middle cerebral artery Status: Acute 68 years old man who probably had a small ischemic infarction and left middle cerebral artery area territory resulting in right hand and arm weakness. He was appropriately treated with TNK and was feeling better. His imaging revealed some signs of fibromuscular dysplasia. Blood pressure was high. My recommendation at this time are to avoid blood thinners for 24 hours and after that start him on aspirin 81 mg daily and clopidogrel 75 mg daily for couple of months and then 1 of them afterwards. Statin is also recommended with good blood pressure control. A noncontrast MRI of brain is recommended. Procedures Date of Service Date of Service: 03/14/24
--- NOTE | 2024-03-14 10:57 | PHA.MEDREC ---
Pharmacy Consult ? Medication Reconciliation Pharmacy has completed the medication reconciliation.Spoke to pt at bedside, and he was able to tell me which medications he takes at home, added them to the list as we were not able to pull up any claims or recent fills. Stated he had not taken anything before coming in today.
--- NOTE | 2024-03-14 11:59 | P.HPCC_ITS ---
History of Present Illness Date of Service: 03/14/24 Attending physician on admission: Vincent Soto Chief Complaint: Weakness of right arm 68-year-old gentleman with past medical history of hypertension, hyperlipidemia, carpal tunnel syndrome woke up at 06:30 this morning and was hurt his baseline. Around 830 in the morning he was holding a cup of tea in his hand and suddenly felt weak and unable to hold it anymore so presented to the ED. CT brain was normal, his presentation was concerning for TIA/acute ischemic stroke so TNK was given and patient is admitted to medical ICU. Review of Systems 2 Constitutional: Constitutional: Denies body ache(s), Denies chills, Denies daytime sleepiness and Denies difficulty sleeping Eyes: Eyes: Denies exophthalmos and Denies change in vision ENT: Reports Normal hearing present and Denies bleeding gums Cardiovascular: Cardiovascular: Denies Abdominal Cramping after Meds and Denies Abdominal Distension Respiratory: Respiratory: Reports no additional respiratory complaints, Denies change in phlegm color, Denies chest congestion and Denies cough Gastrointestinal: Gastrointestinal: Denies abdominal pain, Denies belching and Denies melena Genitourinary: Genitourinary: Denies hematospermia, Denies change in libido and Denies hematuria Musculoskeletal: Musculoskeletal: Denies abnormal gait, Denies back pain and Reports numbness (Right upper extremity) Integumentary/Breasts: Skin/Breast: Denies bleeding lesions and Denies breast swelling Neurologic: Reports Normal hearing present, Denies abnormal gait, Denies behavioral changes, Reports focal weakness (Right upper extremity) and Reports numbness (Right upper extremity) Psychiatric: Psychiatric: Denies abnormal sleep pattern, Denies behavioral changes, Denies change in appetite and Denies change in libido Endocrine: Endocrine: Denies change in libido [facility] Past Medical History Medical History (Updated 03/14/24 @ 12:03 by Vincent Soto MD) Carpal tunnel syndrome Hyperlipidemia HTN (hypertension) Social History Social History (Updated 03/14/24 @ 09:56 by Beatriz Luis DO) Patient Tobacco Use Status: Never used Tobacco Smoked in Last 30 Days: No Use of substances other than those prescribed or required for medical reasons: No Advance Directives: No Advance Directives Information Provided: No Do you have a plan to hurt others: No Plan Nutrition Risks: No Nutritional Risk Meds Allergies Allergy/AdvReac Type Severity Reaction Status Date / Time No Known Allergies Allergy Verified 03/14/24 09:59 Active Medications: Current Medications Acetaminophen (Acetaminophen 325 Mg Tablet) 650 mg PO Q6H PRN PRN Reason: Pain, Mild (Pain Scale 1-3) Famotidine (Famotidine/Pf 20 Mg/2 Ml Vial) 20 mg IVPUSH BID ANNELISE Lactated Ringer's (Lr) 1,000 mls @ 100 mls/hr IVCONT .Q10H ANNELISE Last Admin: 03/14/24 10:45 Dose: 100 mls/hr Home Medications ?Medication ?Instructions ?Recorded ?Confirmed ?Last Taken ?Type atenolol 25 mg tablet 25 mg PO DAILY 03/14/24 03/14/24 03/13/24 History multivitamin 1 tab PO DAILY 03/14/24 03/14/24 03/13/24 History pravastatin 40 mg tablet 40 mg PO DAILY 03/14/24 03/14/24 03/13/24 History Physical Exam 2 Vital Signs: Vital Signs: Last Vital Signs Temp 97.6 F 03/14/24 10:05 Pulse 78 03/14/24 10:47 Resp 14 03/14/24 10:47 BP 148/82 H 03/14/24 10:47 Pulse Ox 96 03/14/24 10:47 O2 Del Method Room Air 03/14/24 10:47 BMI result Body Mass Index 21.2 General: Not in any acute distress Nutritional Appearance: well nourished and normal weight Eyes: appearance normal, both eyes and all related structures; Alignment and Position: alignment normal and position normal Neck: No lymphadenopathy, no thyromegaly Resp: bilateral air entry equal, no added sound Cardio: Regular rate, regular rhythm; Heart sounds: S1 normal heart sound present and S2 normal heart sound present GI: soft, nontender, no guarding, no hepatosplenomegaly : bladder normal to inspection, bladder normal to palpation, no renal angle tenderness Skin: no rashes or lesions noted and elasticity normal Neuro: oriented to person, oriented to place, oriented to time and moves all extremities, focal deficit improved Neuro: Cranial nerves: Yes Normal hearing present Results Labs 03/14/24 09:39 03/14/24 09:39 Labs: Laboratory Results - last 24 hr 0603/14/24 03/14/24 09:32 09:33 09:39 MCV 93.5 MCH 32.1 MCHC 34.3 RDW 12.9 Plt Count 284 MPV 10.5 Immature Gran % (Auto) 0.2 Neut % (Auto) 58.7 Lymph % (Auto) 31.6 [place] % (Auto) 7.5 Eos % (Auto) 1.1 Baso % (Auto) 0.9 Lymph # (Auto) 1.7 [place] # (Auto) 0.4 Eos # (Auto) 0.1 Baso # (Auto) 0.1 Abs Immat Gran (auto) 0.01 Absolute Neuts (auto) 3.2 Absolute Nucleated RBC 0.000 Nucleated RBC % (auto) 0.0 ESR 3 PT 10.9 L Whole Blood PT 12.3 INR 0.9 Whole Blood INR 1.0 APTT 34.5 Anion Gap 12 Estim Creat Clear Calc 48.6 Estimated GFR 53 POC Glucose 113 Random Glucose 121 H Estimat Average Glucose 108 Hemoglobin A1c % 5.4 Calcium 11.2 H D Magnesium 2.1 Total Bilirubin 0.7 Direct Bilirubin 0.2 AST 25 ALT 21 Alkaline Phosphatase 71 Troponin I High Sens < 2.7 C-Reactive Protein < 0.04 Total Protein 7.5 Albumin 4.6 Triglycerides 107 Cholesterol 194 LDL Cholesterol, Calc 118 H HDL Cholesterol 55 Imaging Radiologist's Impressions: Impressions Head CT 03/14/24 09:38 IMPRESSION: No acute intracranial findings. Left maxillary sinus disease. This critical result was discussed with Dr. Kirkland at 0945 hours on 03/14/2024. It was ascertained that the content and urgency of the report was understood at the time of direct communication. Head/Neck CTA 03/14/24 09:57 IMPRESSION: There are a few scattered chronic small vessel ischemic changes within the periventricular white matter and cerebellum. No evidence of acute territorial infarct or hemorrhage. No abnormal intracranial mass or enhancement. There is a subtle beaded irregular contour of both extracranial internal carotid arteries and the cervical vertebral arteries at their V2-V3 junctions suggesting the possibility of underlying fibromuscular dysplasia. Otherwise no stenosis of the cervical carotid or vertebral arteries. No intracranial large vessel occlusion. This critical result was discussed with Beatriz Luis at 10:09 AM on 03/14/2024 and it was ascertained that the content and urgency of the report was understood at the time of direct communication. Assessment and Plan (1) Cerebral infarction: Qualifiers: Cerebral infarction mechanism: embolism Precerebral and cerebral artery: middle cerebral artery Laterality of affected vessel: left Qualified Code(s): I63.412 - Cerebral infarction due to embolism of left middle cerebral artery Status: Acute (2) Right arm weakness: Status: Acute (3) HTN (hypertension): Status: Acute (4) Hyperlipidemia: Status: Acute Plan 68-year-old male with past medical history of, hypertension, hyperlipidemia, carpal tunnel syndrome presented with acute onset right upper extremity weakness around 830 this morning. TIA/acute ischemic syndrome: Presented with right upper extremity weakness, received thrombolysis in the ED Closely monitor his blood pressure, we will do labetalol 20 mg IV push p.r.n. if the blood pressure goes above 180 mmHg Closely monitor neurological status Q1hr, if any changes in neurological status we will get a stat CT brain to rule out bleed We will restart his home statin
[2024-03-14] MEDS: Atorvastatin Calcium 40 MG TABLET PO (13:35)
[2024-03-14] MEDS: Famotidine/PF 20 MG/2 ML VIAL IVPUSH (21:00)
[2024-03-15] VITALS (15 sets, daily range): BP systolic 116–156; BP diastolic 62–88; PULSE 58–86; RESP 9–20; TEMP 35.9–36.8; O2SAT 96–99; BMI 21.2
[2024-03-15] MEDS: Lactated Ringers 1,000 ML 100 ML IVCONT (05:46)
[2024-03-15 05:59] LABS: MANUAL DIFF FLAG NO
[2024-03-15 06:00] LABS: Basophils Percent Auto 0.4 % (0-2); Eosinophils Absolute Auto 0.1 X10*3/uL (0.0-0.4); Eosinophils Percent Auto 1.3 % (0-4); Hematocrit 39.3 % (42.0-52.0); Hemoglobin 13.2 g/dl (14.0-18.0); Imm Gran Abs Auto 0.02 X10*3/uL (0.00-0.03); Imm Gran Pct Auto 0.3 % (0.0-0.4); Lymphocytes Absolute Auto 1.6 X10*3/uL (1.2-4.9); Lymphocytes Percent Auto 23.6 % (20-40); Mean Corpuscular HGB Conc 33.6 g/dl (31.0-36.0); Mean Corpuscular Hemoglobin 31.7 pg (27.0-33.0); Mean Corpuscular Volume 94.2 fL (80.0-98.0); Mean Platelet Volume 10.9 fL (9.4-12.4); Monocytes Absolute Auto 0.6 X10*3/uL (0.1-1.2); Monocytes Percent Auto 9.3 % (2-11); Neutrophils Absolute Auto 4.4 x10*3/uL (2.0-8.3); Neutrophils Percent Auto 65.1 % (45-73); Platelet Count 230 X10*3/uL (160-400); Red Blood Count 4.17 X10*6/uL (4.60-5.80); Red Cell Distribution Width 13.1 % (11.0-16.0); White Blood Count 6.8 X10*3/uL (4.8-10.8)
[2024-03-15 06:27] LABS: Alanine Aminotransferase 16 U/L (0-40); Albumin Level 3.7 g/dL (3.5-5.0); Alkaline Phosphatase 58 U/L (39-117); Anion Gap 10 (12-20); Aspartate Amino Transferase 19 U/L (5-37); Bilirubin Total 0.7 mg/dL (0.0-1.0); Blood Urea Nitrogen 17 mg/dL (9-16); Calcium 9.9 mg/dL (8.4-10.2); Carbon Dioxide 26 mmol/L (22-29); Chloride 109 mmol/L (96-108); Creatinine Clr Calc Pharmacy 57.1; Estimated Glomerular Filt Rate > 60; Glucose Random 95 mg/dL (60-115); Potassium 4.3 mmol/L (3.3-5.1); Sodium 141 mmol/L (135-145); Total Protein 6.1 g/dL (6.5-8.0)
[2024-03-15] MEDS: Famotidine/PF 20 MG/2 ML VIAL IVPUSH ×2 (09:35→20:57)
[2024-03-15] MEDS: Atorvastatin Calcium 40 MG TABLET PO (09:35)
--- NOTE | 2024-03-15 10:08 | PM.CCPN ---
Subjective Subjective Date of Service: 03/15/24 Critical Care Time (minutes): 35 Comment: No new neurological events over the past 24 hours, weakness has completely resolved Blood pressures remained stable did not require any antihypertensive pushes Physical Exam Vital Signs: Vital Signs: Last Vital Signs Temp 96.6 F L 03/15/24 07:00 Pulse 86 03/15/24 09:00 Resp 11 L 03/15/24 09:00 BP 143/88 H 03/15/24 09:00 Pulse Ox 98 03/15/24 09:00 O2 Del Method Room Air 03/15/24 09:00 BMI result Body Mass Index 21.2 General: Not in acute distress, normal and come appearing Nutritional Appearance: well nourished and normal weight Eyes: appearance normal, both eyes and all related structures; Alignment and Position: alignment normal and position normal Neck: No lymphadenopathy, no thyromegaly Resp: bilateral air entry equal, no added sounds present Cardio: Regular rate, regular rhythm; Heart sounds: S1 normal heart sound present and S2 normal heart sound present GI: soft, nontender, no guarding, no hepatosplenomegaly : bladder normal to inspection, bladder normal to palpation, no renal angle tenderness Skin: no rashes or lesions noted and elasticity normal Neuro: oriented to person, oriented to place, oriented to time and moves all extremities, no weakness in upper extremities Objective Data Labs 03/15/24 05:23 03/15/24 05:23 Labs: Laboratory Results - last 24 hr 03/14/24 03/15/24 09:39 05:23 WBC 6.8 RBC 4.17 L Hgb 13.2 L Hct 39.3 L MCV 94.2 MCH 31.7 MCHC 33.6 RDW 13.1 Plt Count 230 MPV 10.9 Immature Gran % (Auto) 0.3 Neut % (Auto) 65.1 Lymph % (Auto) 23.6 [place] % (Auto) 9.3 Eos % (Auto) 1.3 Baso % (Auto) 0.4 Lymph # (Auto) 1.6 [place] # (Auto) 0.6 Eos # (Auto) 0.1 Baso # (Auto) 0.0 Abs Immat Gran (auto) 0.02 Absolute Neuts (auto) 4.4 Absolute Nucleated RBC 0.000 Nucleated RBC % (auto) 0.0 ESR 3 Sodium 141 141 Potassium 4.2 4.3 Chloride 106 109 H Carbon Dioxide 27 26 Anion Gap 12 10 L BUN 19 H 17 H Creatinine 1.34 1.14 Estim Creat Clear Calc 48.6 57.1 Estimated GFR 53 > 60 Random Glucose 121 H 95 Estimat Average Glucose 108 Hemoglobin A1c % 5.4 Calcium 11.2 H D 9.9 D Magnesium 2.1 Total Bilirubin 0.7 0.7 Direct Bilirubin 0.2 AST 25 19 ALT 21 16 Alkaline Phosphatase 71 58 Troponin I High Sens < 2.7 C-Reactive Protein < 0.04 Total Protein 7.5 6.1 L Albumin 4.6 3.7 Triglycerides 107 Cholesterol 194 LDL Cholesterol, Calc 118 H HDL Cholesterol 55 Progress Note: A&P Assessment and plan (1) Hyperlipidemia: Status: Acute (2) HTN (hypertension): Status: Acute (3) Cerebral infarction: Status: Acute (4) Right arm weakness: Status: Acute Plan 68-year-old male with past medical history of, hypertension, hyperlipidemia, carpal tunnel syndrome presented with acute onset right upper extremity weakness around 830 this morning. TIA/acute ischemic syndrome: Presented with right upper extremity weakness, received thrombolysis in the ED yesterday around 10:00AM No residual weakness, strength in all extremities normal CT of the brain did show acute intracranial changes, CTA neck showed beaded and irregular contour of the carotids, rule out fibromuscular dysplasia. Needs further evaluation TTE normal, no arrhythmias We will get MRI of the brain Target blood pressure blood pressure <180 mmHg Continue atorvastatin 40 mg, aspirin to be started as per Neurology possibly today We will transfer him to floor Quality Stroke Does the patient have a stroke diagnosis?: No VTE Prior VTE?: No VTE Risk Level:: Medical - low VTE Device Contraindication: N/A - Device Ordered VTE Drug Contraindication: Treatment Not Indicated
--- NOTE | 2024-03-15 13:04 | MHC.CM.PN ---
EMR REVIEWED, CM ATTEMPTED TO MEET W/PT HOWEVER PT OFF UNIT FOR MRI, PT'S KANA AT [facility] AND ANSWERED ALL QUESTIONS, KANA REPORTS PT STILL WORKS/DRIVES, IS FULLY INDEP W/ALL CARE, NO DME/SERVICES, GOAL OS FOR PT TO RETURN HOME AND KANA WOULD LIKE TO KNOW ROSE MARIE IF PT WILL DC TODAY, NSG AWARE. KANA VERIFIES PCP ON FILE IS CORRECT AND REPORTS SHE IS HCP KANA CASTILLO [phone] C: [phone]
[2024-03-15] MEDS: Aspirin Enteric Coated 81 MG TABLET.DR PO (14:45)
[2024-03-15] MEDS: 0.9 % Sodium Chloride Flush 3 ML SYRINGE IVFLUSH ×2 (16:05→20:57)
[2024-03-16] VITALS: BP 120/63; PULSE 91; RESP 18; TEMP 36.6; O2SAT 97
[2024-03-16 04:00] VITALS: BP 116/69; PULSE 80; RESP 18; TEMP 36.6; O2SAT 96
[2024-03-16 07:09] LABS: Alanine Aminotransferase 13 U/L (0-40); Alkaline Phosphatase 67 U/L (39-117); Anion Gap 11 (12-20); Aspartate Amino Transferase 20 U/L (5-37); Bilirubin Total 0.8 mg/dL (0.0-1.0); Blood Urea Nitrogen 15 mg/dL (9-16); Calcium 10.3 mg/dL (8.4-10.2); Carbon Dioxide 25 mmol/L (22-29); Chloride 107 mmol/L (96-108); Creatinine Clr Calc Pharmacy 57.6; Estimated Glomerular Filt Rate > 60; Glucose Random 94 mg/dL (60-115); Potassium 4.2 mmol/L (3.3-5.1); Sodium 139 mmol/L (135-145); Total Protein 6.7 g/dL (6.5-8.0)
[2024-03-16 08:00] VITALS: BP 133/79; PULSE 95; RESP 18; TEMP 36.3; O2SAT 97
[2024-03-16] MEDS: Atorvastatin Calcium 40 MG TABLET PO (08:45)
[2024-03-16] MEDS: Aspirin Enteric Coated 81 MG TABLET.DR PO (08:45)
[2024-03-16] MEDS: Famotidine/PF 20 MG/2 ML VIAL IVPUSH (08:45)
[2024-03-16] MEDS: 0.9 % Sodium Chloride Flush 3 ML SYRINGE IVFLUSH (08:46)
--- NOTE | 2024-03-16 09:48 | PM.DS ---
DS: Providers Provider Date of Service: 03/16/24 Date of admission: 03/14/24 10:26 Primary care physician: Ki Charlton DO Consults: 03/14/24 16:02 Consult to Wound Care Routine Reason for consultation: DTI to coccyx Has provider been notified: No 03/15/24 10:33 Consult to Neurology Routine Consulting Provider: [facility] Reason for consultation: Acute stroke DS: Diagnosis Discharge Diagnosis (1) Hyperlipidemia: Status: Acute (2) HTN (hypertension): Status: Acute (3) Cerebral infarction: Status: Acute (4) Right arm weakness: Status: Acute (5) Stroke: Status: Acute DS: Summary Hospital Course Hospital Course: Admission note HPI 68-year-old gentleman with past medical history of hypertension, hyperlipidemia, carpal tunnel syndrome woke up at 06:30 this morning and was hurt his baseline. Around 830 in the morning he was holding a cup of tea in his hand and suddenly felt weak and unable to hold it anymore so presented to the ED. CT brain was normal, his presentation was concerning for TIA/acute ischemic stroke so TNK was given and patient is admitted to medical ICU. Hospital course The patient presented with acute ischemic syndrome with right upper extremity weakness and received thrombolysis therapy with no residual weakness as he worked with PT who recommended no need for therapy as he is strong and steady. CT of the brain did show acute intracranial changes, CTA neck showed beaded and irregular contour of the carotids, rule out fibromuscular dysplasia. TTE normal, no arrhythmias. MRI was done showing Small acute infarct of the left precentral gyrus in the region of the hand knob. He was evaluated by neurologist who recommended Atorvastatin, aspirin and plavix for couple of months then one agent alone. patient will follow with dr Andrews office as outpatient. blood pressure fairly controlled on Atenolol. Discharge plan Increase physical activities as tolerated Stay well hydrated Aspirin and Plavix for the next 2-3 months Start Atorvastatin 40 mg daily and discontinue Pravastatin Follow with dr Andrews office as outpatient in 2 months for alf plan and medications adjustment. Time Attestation Discharge Coordination Time (in mins): 38 Quality: Safe Use of Opioids Does Pt have an Active Cancer Diagnosis on the Problem List?: No Quality: Stroke Does the patient have a stroke diagnosis?: Yes Reason for No Anti-thrombotic at DC: N/A - Med Ordered Reason for No Anticoagulant at DC: Not indicated Reason Not Initiating IV-Tpa: N/A - Med Ordered Reason for No Anti-thrombotic by Day Two: N/A - Med Ordered Reason for No Statin at DC: N/A - Med Ordered Physical Exam Vital Signs: Vital Signs: Last Vital Signs Temp 97.4 F 03/16/24 08:00 Pulse 95 03/16/24 08:00 Resp 18 03/16/24 08:00 BP 133/79 03/16/24 08:00 Pulse Ox 97 03/16/24 08:00 O2 Del Method Room Air 03/16/24 08:00 BMI result Body Mass Index 21.2 Const: Other: Constitutional : Awake, interactive, not in distress Neck : Normal inspection, Supple Cardiovascular : RRR, no JVP, no lower extremity edema Respiratory : good bilateral air entry, no crackles, wheezes or rhonchi Gastrointestinal: soft, lax, Normal bowel sounds, Non tender Skin : Warm, Dry Neurological : Alert & oriented x3, No focal deficit , CN 2-12 within normal DS: Data Data Completed and Pending Labs on day of discharge: Laboratory Results - last 24 hr 03/16/24 03/16/24 03/16/24 06:20 06:20 06:20 Sodium 139 Cancelled Potassium 4.2 Cancelled Chloride 107 Carbon Dioxide Anion Gap BUN Creatinine Estim Creat Clear Calc Estimated GFR Random Glucose Calcium Total Bilirubin AST ALT Alkaline Phosphatase Total Protein Albumin 03/16/24 03/16/24 03/16/24 06:20 06:20 06:20 Sodium Potassium Chloride Cancelled Carbon Dioxide 25 Cancelled Anion Gap 11 L Cancelled BUN 15 Creatinine Estim Creat Clear Calc Estimated GFR Random Glucose Calcium Total Bilirubin AST ALT Alkaline Phosphatase Total Protein Albumin 03/16/24 03/16/24 03/16/24 06:20 06:20 06:20 Sodium Potassium Chloride Carbon Dioxide Anion Gap BUN Cancelled Creatinine 1.13 Cancelled Estim Creat Clear Calc 57.6 Cancelled Estimated GFR > 60 Random Glucose Calcium Total Bilirubin AST ALT Alkaline Phosphatase Total Protein Albumin 03/16/24 03/16/24 03/16/24 06:20 06:20 06:20 Sodium Potassium Chloride Carbon Dioxide Anion Gap BUN Creatinine Estim Creat Clear Calc Estimated GFR Cancelled Random Glucose 94 Cancelled Calcium 10.3 H Cancelled Total Bilirubin 0.8 AST 20 ALT 13 Alkaline Phosphatase 67 Total Protein 6.7 Albumin 4.0 Imaging MRI - head: Radiologist's impression: ITS Impressions Head CT 03/14/24 09:38 IMPRESSION: No acute intracranial findings. Left maxillary sinus disease. This critical result was discussed with Dr. Kirkland at 0945 hours on 03/14/2024. It was ascertained that the content and urgency of the report was understood at the time of direct communication. Head/Neck CTA 03/14/24 09:57 IMPRESSION: There are a few scattered chronic small vessel ischemic changes within the periventricular white matter and cerebellum. No evidence of acute territorial infarct or hemorrhage. No abnormal intracranial mass or enhancement. There is a subtle beaded irregular contour of both extracranial internal carotid arteries and the cervical vertebral arteries at their V2-V3 junctions suggesting the possibility of underlying fibromuscular dysplasia. Otherwise no stenosis of the cervical carotid or vertebral arteries. No intracranial large vessel occlusion. This critical result was discussed with Beatriz Luis at 10:09 AM on 03/14/2024 and it was ascertained that the content and urgency of the report was understood at the time of direct communication. Brain MRI 03/15/24 12:56 IMPRESSION: Small acute infarct of the left precentral gyrus in the region of the hand knob. Discharge Plan Discharge Anticipated Discharge Date/Time: 03/16/24 09:43 Patient Disposition: Home, Self-Care Discharge Diagnosis: acute stroke Referrals: Ki Charlton DO [Primary Care Provider] - 1 Week Discharge Medications: New atorvastatin 40 mg Tablet 40 mg PO DAILY Qty: 90 0RF clopidogrel 75 mg Tablet 75 mg PO DAILY Qty: 90 0RF aspirin 81 mg Tablet,Delayed Release (Dr/Ec) 81 mg PO DAILY Qty: 90 0RF famotidine 40 mg tablet 40 mg PO DAILY Qty: 90 0RF Continued multivitamin Tablet 1 tab PO DAILY atenolol 25 mg Tablet 25 mg PO DAILY Discontinued pravastatin 40 mg Tablet 40 mg PO DAILY Discharge Orders: Discharge Order (Routine); Ordered 03/16/24 Ordered By: Michaela Lopez Diet: Low fat, low cholesterol Activity on Discharge: As tolerated Stand Alone Forms: Patient Portal Discharge page Print Language: [place] Care Plan Goals: Increase physical activities as tolerated Stay well hydrated Aspirin and Plavix for the next 2-3 months Start Atorvastatin 40 mg daily and discontinue Pravastatin 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 Health Concerns: Read below Plan of Treatment: Read below Assessment: Read below Patient Instructions: Famotidine (By mouth), Aspirin (By mouth), Atorvastatin (By mouth), Clopidogrel (By mouth), Ischemic Stroke (GEN)
[2024-03-16] MEDS: Clopidogrel Bisulfate 75 MG TABLET PO (10:08)
--- NOTE | 2024-03-16 11:30 | MHC.CM.PN ---
Pt is medically cleared for discharge home self-care, pts will transport him home.
== END 2024-03-16 10:45 | disposition home or self-care (01) | DRG 45 ==
LOC: HO.ED 10:18 → HO.EDOVER 10:36 → HO.ICU 10:56 → HO.IMC 03-15 10:29
PROVIDERS: Admitting Provider Internal Medicine Critical Care Medicine; Emergency Provider Emergency Medicine; PCP Internal Medicine; Visit Provider Student in an Organized Health Care Education/Training Program
DX: I63.412 Cerebral infarction due to embolism of left middle cerebral artery (principal); E78.5 Hyperlipidemia, unspecified; I10 Essential (primary) hypertension; R29.702 NIHSS score 2; G83.21 Monoplegia of upper limb affecting right dominant side; Z79.899 Other long term (current) drug therapy
CPT/HCPCS: 36415; 70450; 70496; 70498; 70551; 80048; 80053; 80061; 80076; 82947; 83036; 83735; 84484; 85025; 85610; 85652; 85730; 86140; 93005; 93306; 97161; 99285; J3101; J7120; Q9967

== ENCOUNTER → 2024-03-14 09:33 | Outpatient (BNV) | payer BC, SELFPAY | PROVIDERS: Admitting Provider Internal Medicine Critical Care Medicine; Emergency Provider Emergency Medicine; PCP Internal Medicine; Visit Provider Internal Medicine Cardiovascular Disease | DX: I34.81 Nonrheumatic mitral (valve) annulus calcification (principal); I35.8 Other nonrheumatic aortic valve disorders; R94.31 Abnormal electrocardiogram [ECG] [EKG] | CPT/HCPCS: 93010; 93306 ==

== ENCOUNTER → 2024-03-14 10:26 | Outpatient (BNV) | payer BC, SELFPAY | PROVIDERS: Admitting Provider Internal Medicine Critical Care Medicine; Emergency Provider Emergency Medicine; PCP Internal Medicine; Visit Provider Student in an Organized Health Care Education/Training Program | DX: E78.5 Hyperlipidemia, unspecified (principal); I10 Essential (primary) hypertension; I63.412 Cerebral infarction due to embolism of left middle cerebral artery; R29.898 Other symptoms and signs involving the musculoskeletal system; I63.9 Cerebral infarction, unspecified | CPT/HCPCS: 99239 ==

== ENCOUNTER → 2024-03-14 10:26 | Outpatient (BNV) | payer BC, SELFPAY | PROVIDERS: Admitting Provider Internal Medicine Critical Care Medicine; Emergency Provider Emergency Medicine; PCP Internal Medicine; Visit Provider Internal Medicine Critical Care Medicine | DX: I63.412 Cerebral infarction due to embolism of left middle cerebral artery (principal); E78.5 Hyperlipidemia, unspecified; I10 Essential (primary) hypertension; R29.898 Other symptoms and signs involving the musculoskeletal system | CPT/HCPCS: 99223; 99291 ==

== ENCOUNTER → 2024-03-14 10:26 | Outpatient (BNV) | payer BC, SELFPAY | PROVIDERS: Admitting Provider Internal Medicine Critical Care Medicine; Emergency Provider Emergency Medicine; PCP Internal Medicine; Visit Provider Psychiatry & Neurology Neurology | DX: I63.412 Cerebral infarction due to embolism of left middle cerebral artery (principal) | CPT/HCPCS: 99223 ==

== ENCOUNTER → 2024-05-13 10:59 | Outpatient (REF) | payer BC, SELFPAY ==
--- NOTE | 2024-05-13 11:09 | HM_ITS ---
Cardiac event monitor Indication: CVA Technique Patient was hooked up to cardiac event monitor from 05/13/2024 to 06/12/2024 for total period of 30 days with a where time of 28 days. Findings: Baseline was normal sinus rhythm with average heart of 66 beats per minute. No significant pauses or av conduction abnormality noted. Sinus bradycardia was noted 32% of the time. Rare PACs noted with total burden of less than 1%. One short run of SVE noted without evidence of atrial fibrillation. No PVCs were noted Patient triggered the event monitor 20 9 times with no significant symptoms reported correlating with sinus rhythm. Conclusion: 1. Baseline was normal sinus rhythm with no significant pauses or arrhythmias 2. No episodes of atrial fibrillation 3. Patient triggered events correlated with sinus rhythm. [facility]
== END ==
LOC: HO.CARD 10:59
PROVIDERS: Visit Provider Psychiatry & Neurology Neurology
DX: I63.40 Cerebral infarction due to embolism of unspecified cerebral artery (principal)
CPT/HCPCS: 93270

== ENCOUNTER → 2024-05-13 11:09 | Outpatient (BNV) | payer BC, SELFPAY | PROVIDERS: Visit Provider Internal Medicine Cardiovascular Disease | DX: R00.1 Bradycardia, unspecified (principal) | CPT/HCPCS: 93272 ==

== ENCOUNTER 2024-07-18 09:03 | Outpatient (REF) | payer BC, SELFPAY ==
[2024-07-18 10:17] LABS: Appearance Urine Clear; Color Urine Yellow; Glucose Urine UA Negative (Negative); Leukocyte Esterase Urine Negative (Negative); Nitrite Urine Negative (Negative); PH 5.5 (5.0-9.0); Specific Gravity - Urine 1.025 (1.005-1.025); Urine Blood Negative (Negative); Urine Ketones Trace mg/dL (Negative); Urine Protein Negative (Neg-Trace)
[2024-07-18 10:24] LABS: MANUAL DIFF FLAG NO
[2024-07-18 10:24] LABS: Bacteria Urine None Seen (None Seen); RBC Urine 0-2 /HPF (0-2); Squamous Epithelial Cell Urine 0-2 /HPF (0-2); WBC Urine 0-5 /HPF (0-5)
[2024-07-18 10:40] LABS: Basophils Percent Auto 0.5 % (0-2); Eosinophils Absolute Auto 0.1 X10*3/uL (0.0-0.4); Eosinophils Percent Auto 1.4 % (0-4); Hematocrit 41.8 % (42.0-52.0); Hemoglobin 14.1 g/dl (14.0-18.0); Imm Gran Abs Auto 0.01 X10*3/uL (0.00-0.03); Imm Gran Pct Auto 0.2 % (0.0-0.4); Lymphocytes Absolute Auto 1.5 X10*3/uL (1.2-4.9); Mean Corpuscular HGB Conc 33.7 g/dl (31.0-36.0); Mean Corpuscular Hemoglobin 31.7 pg (27.0-33.0); Mean Corpuscular Volume 93.9 fL (80.0-98.0); Mean Platelet Volume 11.3 fL (9.4-12.4); Monocytes Absolute Auto 0.5 X10*3/uL (0.1-1.2); Monocytes Percent Auto 8.6 % (2-11); Neutrophils Absolute Auto 3.6 x10*3/uL (2.0-8.3); Neutrophils Percent Auto 62.3 % (45-73); Platelet Count 274 X10*3/uL (160-400); Red Blood Count 4.45 X10*6/uL (4.60-5.80); Red Cell Distribution Width 12.9 % (11.0-16.0); White Blood Count 5.7 X10*3/uL (4.8-10.8)
[2024-07-18 11:23] LABS: Alanine Aminotransferase 33 U/L (0-40); Albumin Level 4.5 g/dL (3.5-5.0); Alkaline Phosphatase 78 U/L (39-117); Anion Gap 10 (12-20); Aspartate Amino Transferase 33 U/L (5-37); Bilirubin Total 0.6 mg/dL (0.0-1.0); Blood Urea Nitrogen 23 mg/dL (9-16); Calcium 11.2 mg/dL (8.4-10.2); Carbon Dioxide 26 mmol/L (22-29); Chloride 109 mmol/L (96-108); Cholesterol 140 mg/dL (<200); Estimated Glomerular Filt Rate 57; Glucose Fasting 104 mg/dL (60-99); HDL Cholesterol 48 mg/dL (>40); LDL Cholesterol Calculated 77 mg/dL (<100); Potassium 4.2 mmol/L (3.3-5.1); Sodium 141 mmol/L (135-145); Thyroid Stimulating Hormone 1.25 uIU/mL (0.32-4.0); Total Protein 7.3 g/dL (6.5-8.0); Triglycerides 77 mg/dL (<150); Vitamin D 25-OH Total 42.7 ng/mL (>30)
[2024-07-18 11:37] LABS: Parathyroid Hormone Intact 111.3 pg/mL (8.7-77.1)
== END 2024-07-18 09:04 | disposition home or self-care (01) ==
LOC: HO.HMGCLDS 09:03
PROVIDERS: PCP Internal Medicine; Visit Provider Internal Medicine
DX: Z00.00 Encounter for general adult medical examination without abnormal findings (principal); I10 Essential (primary) hypertension; E78.00 Pure hypercholesterolemia, unspecified; E55.9 Vitamin D deficiency, unspecified; Z12.5 Encounter for screening for malignant neoplasm of prostate
CPT/HCPCS: 36415; 80053; 80061; 81001; 82306; 83970; 84153; 84443; 85025

== ENCOUNTER 2024-07-29 08:18 | Outpatient (AMB) | payer BC, SELFPAY ==
--- NOTE | 2024-07-29 08:30 | MHC.OFFVIS ---
Vital Signs 07/29/24 08:33 Height 5 ft 10.31 in Weight 147 lb 0.773 oz BMI 20.9 BP 140/72 H Blood Pressure Location Rt brachial Position Sitting Pulse 75 Pulse Source Pulse Oximeter Intake Visit Reasons: Hypercalcemia-lvm Intake Note: New patient externally referred for Hypercalceima. 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 Stephen was told about hypercalcemia Not Currently using Calcium supplement . Takes 2000 IU of Vitamin D daily. Not Currently using HCTZ. Kidney stones: No Osteoporosis: No History of [place] use: No Biotin use: No Family history of high calcium or kidney stones: No Renal imaging: [] DXA: Labs: [facility] Medical History (Updated 07/29/24 @ 08:33 by Ki Silva MD) Hypercalcemia Cerebral infarction Carpal tunnel syndrome Hyperlipidemia HTN (hypertension) Surgical History (Updated 07/29/24 @ 08:34 by SAM Casas) No pertinent past surgical history Family History (Updated 07/29/24 @ 08:00 by SAM Casas) Mother History of hypertension Hypercholesteremia Father Heart disease CAD (coronary artery disease) of artery bypass graft Social History (Updated 03/14/24 @ 09:56 by Beatriz Luis DO) Household Members: Spouse, Family and Children Housing: House Do you presently have visiting nurse or other home services: No Patient Tobacco Use Status: Never used Tobacco service: No Physical Exam There are no Cushingoid features. Absence of blue sclera. Absence of kyphosis. Thyroid gland is of nl size and weighs 15 gms. There are no thyroid nodules palpated. Lungs CTA. Heart S1 S2 Reg R/R Abdominal exam benign. Muscle strength 5/5 . Examination of spine reveals absence of tenderness on palpation Assessment & Plan Assessment & Plan (1) Hypercalcemia: Code(s): E83.52 - Hypercalcemia Category: Medical Plan: A 68-year-old white male with a history of hypercalcemia with elevated PTH consistent with primary hyperparathyroidism dating back to 2020. There is a moderate increase in calcium the patient meets criteria for parathyroid exploration. Will check 24 hour urine for calcium and creatinine as well as repeat serum calcium, albumin and PTH to verify diagnosis of primary hyperparathyroidism. We will discuss with patient necessity of surgical referral for possible surgical exploration considering the degree of calcium elevation Orders: Orders Parathyroid Hormone Intact Today E83.52 - Hypercalcemia Creatinine, 24 Hr Group Today E83.52 - Hypercalcemia Calcium Today E83.52 - Hypercalcemia Albumin Level Today E83.52 - Hypercalcemia Calcium, 24 Hr Ur Today E83.52 - Hypercalcemia Referrals General Surgery Referral E83.52 - Hypercalcemia Coding Level of Care Code New Pt Level 4 (03026) Diagnoses Hypercalcemia E83.52
[2024-07-29 08:33] VITALS: BP 140/72; PULSE 75; BMI 20.9
== END 2024-07-29 09:14 | disposition home or self-care (01) ==
PROVIDERS: PCP Internal Medicine; Visit Provider Internal Medicine Endocrinology, Diabetes & Metabolism
DX: E83.52 Hypercalcemia (principal)
CPT/HCPCS: 99204

== ENCOUNTER → 2024-07-29 08:18 | Outpatient (BNVA) | payer BC, SELFPAY | PROVIDERS: PCP Internal Medicine; Visit Provider Internal Medicine Endocrinology, Diabetes & Metabolism ==

== ENCOUNTER → 2025-02-25 07:58 | Outpatient (BNV) | payer BC, SELFPAY | PROVIDERS: PCP Internal Medicine; Visit Provider Radiology Diagnostic Radiology | DX: R05.9 Cough, unspecified (principal) | CPT/HCPCS: 71045 ==

== ENCOUNTER 2025-02-25 08:11 | Emergency (ER) | payer BC, SELFPAY ==
--- NOTE | ~2025-02-25 | XR_ITS ---
EXAMINATION: XR CHEST 1 VIEW HISTORY: cough COMPARISON: There are no prior studies available for comparison. FINDINGS: A single PA view of the chest is submitted. The lungs are expanded and clear. There is no pleural effusion, pneumothorax, or pulmonary vascular congestion. The heart is normal in size. There is mild dextroscoliosis of the spine. XR/XR chest 1V IMPRESSION: Clear lungs. Electronically signed by: Ki Vicente MD 02/25/2025 09:15 AM EDT
[2025-02-25 08:32] VITALS: BP 120/69; PULSE 91; RESP 18; TEMP 36.7; O2SAT 97; BMI 20.5
[2025-02-25 08:47] LABS: MANUAL DIFF FLAG NO
[2025-02-25 08:49] LABS: Basophils Percent Auto 0.3 % (0-2); Eosinophils Percent Auto 0.5 % (0-4); Hematocrit 39.9 % (42.0-52.0); Hemoglobin 13.6 g/dl (14.0-18.0); Imm Gran Abs Auto 0.01 X10*3/uL (0.00-0.03); Imm Gran Pct Auto 0.2 % (0.0-0.4); Lymphocytes Absolute Auto 0.6 X10*3/uL (1.2-4.9); Lymphocytes Percent Auto 8.8 % (20-40); Mean Corpuscular HGB Conc 34.1 g/dl (31.0-36.0); Mean Corpuscular Hemoglobin 31.9 pg (27.0-33.0); Mean Corpuscular Volume 93.7 fL (80.0-98.0); Mean Platelet Volume 10.6 fL (9.4-12.4); Monocytes Absolute Auto 0.4 X10*3/uL (0.1-1.2); Monocytes Percent Auto 6.6 % (2-11); Neutrophils Absolute Auto 5.3 x10*3/uL (2.0-8.3); Neutrophils Percent Auto 83.6 % (45-73); Platelet Count 269 X10*3/uL (160-400); Red Blood Count 4.26 X10*6/uL (4.60-5.80); Red Cell Distribution Width 12.3 % (11.0-16.0); White Blood Count 6.3 X10*3/uL (4.8-10.8)
[2025-02-25 09:02] LABS: Anion Gap 10 (12-20); Blood Urea Nitrogen 22 mg/dL (9-16); Calcium 8.8 mg/dL (8.4-10.2); Carbon Dioxide 27 mmol/L (22-29); Chloride 106 mmol/L (96-108); Creatinine Clr Calc Pharmacy 51.2; Estimated Glomerular Filt Rate 59; Glucose Random 127 mg/dL (60-115); Sodium 139 mmol/L (135-145)
[2025-02-25 09:50] LABS: Influenza A PCR NEGATIVE (Negative); Influenza B PCR NEGATIVE (Negative); Resp Syncy Virus RNA Qual PCR NEGATIVE (Negative); SARS COV2 PCR INHOUSE NEGATIVE (Negative)
[2025-02-25 11:04] VITALS: BP 129/71; PULSE 83; RESP 18; TEMP 36.6; O2SAT 99
--- NOTE | 2025-02-25 11:04 | ED_ITS ---
HPI - URI/Sore Throat General Chief Complaint: Upper Respiratory Symptoms Stated Complaint: bodyaches Time Seen by Provider: 02/25/25 11:35 Related Data Home Medications ?Medication ?Instructions ?Recorded ?Confirmed atenolol 25 mg tablet 25 mg PO DAILY 03/14/24 03/14/24 multivitamin 1 tab PO DAILY 03/14/24 03/14/24 cholecalciferol (vitamin D3) 50 50 mcg PO DAILY 07/29/24 mcg (2,000 unit) capsule Previous Rx's ?Medication ?Instructions ?Recorded aspirin 81 mg tablet,delayed 81 mg PO DAILY #90 tabs 03/16/24 release atorvastatin 40 mg tablet 40 mg PO DAILY #90 tabs 03/16/24 clopidogrel 75 mg tablet 75 mg PO DAILY #90 tabs 03/16/24 famotidine 40 mg tablet 40 mg PO DAILY #90 tabs 03/16/24 Allergies Allergy/AdvReac Type Severity Reaction Status Date / Time No Known Allergies Allergy Verified 02/25/25 08:33 [facility] Past Medical History Medical History Hypercalcemia Cerebral infarction Carpal tunnel syndrome Hyperlipidemia HTN (hypertension) Surgical History No pertinent past surgical history Family History Family History Mother History of hypertension Hypercholesteremia Father Heart disease CAD (coronary artery disease) of artery bypass graft Social History Social History Household Members: Spouse, Family and Children Housing: House Do you presently have visiting nurse or other home services: No Patient Tobacco Use Status: Never used Tobacco service: No Physical Exam 2 Vital Signs: Vital Signs: Last Vital Signs Temp 97.9 F 02/25/25 11:51 Pulse 83 02/25/25 11:51 Resp 18 02/25/25 11:51 BP 129/71 02/25/25 11:51 Pulse Ox 99 02/25/25 11:51 O2 Del Method Room Air 02/25/25 11:51 BMI result Body Mass Index 20.5 Course Course Course Narrative: 69 yo male with PMH of thyroidectomy one week ago at [facility], prior to stroke, HTN, HLD here with c/o fatigue, fevers, chills, myalgias since with a sore throat. He has no CP/SOB, normal neuro. It is vague whole body not feeling well. At this time labs, CXR, UA, viral panel, strep swab, tick panel. this is a RAPID medical screening exam the rest of the history and physical exam is to be done by the main provider. LAUREL 02/25/25 Medical Decision Making Lab Data 02/25/25 08:43 02/25/25 08:43 Labs: Lab Results 02/25/25 02/25/25 Range/Units 08:43 11:25 WBC 6.3 (4.8-10.8) X10*3/uL RBC 4.26 L (4.60-5.80) X10*6/uL Hgb 13.6 L (14.0-18.0) g/dl Hct 39.9 L (42.0-52.0) % MCV 93.7 (80.0-98.0) fL MCH 31.9 (27.0-33.0) pg MCHC 34.1 (31.0-36.0) g/dl RDW 12.3 (11.0-16.0) % Plt Count 269 (160-400) X10*3/uL MPV 10.6 (9.4-12.4) fL Immature Gran % (Auto) 0.2 (0.0-0.4) % Neut % (Auto) 83.6 H (45-73) % Lymph % (Auto) 8.8 L (20-40) % Weber % (Auto) 6.6 (2-11) % Eos % (Auto) 0.5 (0-4) % Baso % (Auto) 0.3 (0-2) % Lymph # (Auto) 0.6 L (1.2-4.9) X10*3/uL Weber # (Auto) 0.4 (0.1-1.2) X10*3/uL Eos # (Auto) 0.0 (0.0-0.4) X10*3/uL Baso # (Auto) 0.0 (0.0-0.2) X10*3/uL Abs Immat Gran (auto) 0.01 (0.00-0.03) X10*3/uL Absolute Neuts (auto) 5.3 (2.0-8.3) x10*3/uL Absolute Nucleated RBC 0.000 (0.0-0.012) X10*3/uL Nucleated RBC % (auto) 0.0 (0.0-0.2) /100WBC Sodium 139 (135-145) mmol/L Potassium 4.0 (3.3-5.1) mmol/L Chloride 106 (96-108) mmol/L Carbon Dioxide 27 (22-29) mmol/L Anion Gap 10 L (12-20) BUN 22 H (9-16) mg/dL Creatinine 1.21 (0.5-1.4) mg/dL Estim Creat Clear Calc 51.2 Estimated GFR 59 Random Glucose 127 H (60-115) mg/dL Calcium 8.8 D (8.4-10.2) mg/dL TSH 0.02 L (0.32-4.0) uIU/mL Free T4 1.04 (0.71-1.85) ng/dL Urine Color Yellow Urine Appearance Clear Urine pH 6.0 (5.0-9.0) Ur Specific [place] >= 1.030 H (1.005-1.025) Urine Protein 30 (1+) H (Neg-Trace) mg/dL Urine Glucose (UA) Negative (Negative) mg/dL Urine Ketones Trace (Negative) mg/dL Urine Blood Negative (Negative) Urine Nitrite Negative (Negative) Ur Leukocyte Esterase Negative (Negative) Urine RBC 0-2 (0-2) /HPF Urine WBC 0-5 (0-5) /HPF Ur Squamous Epith Cells 0-2 (0-2) /HPF Urine Bacteria None Seen (None Seen) Hyaline Casts 0-2 (0-2) /LPF Lyme Screen IgG & IgM <0.90 index Influenza Type A (PCR) NEGATIVE (Negative) Influenza Type B (PCR) NEGATIVE (Negative) RSV RNA Qual (PCR) NEGATIVE (Negative) SARS-CoV-2 RNA (RT-PCR) NEGATIVE (Negative) S. pyogenes GrpA PAULINO Negative (Negative) Discharge Plan Discharge Clinical Impression: Viral illness Patient Disposition: Home, Self-Care Instructions: Viral Syndrome (ED) Additional Instructions: You were evaluated in the ED today due to body aches, cough and chills. Your lab work did not show any concerns for infection. Your chest x-ray did not show any infectious process or pneumonia. Your viral swabs for COVID/flu/ RSV, and strep were all negative. We are awaiting urine, and tick panel to result. If positive we will call you and get you started on treatment if needed. You should get plenty of fluids to maintain hydration, Eat nutritious foods, get plenty of rest. Please follow up with your PCP to ensure improvement. You can alternate Tylenol and Motrin every 6 hours for pain control. Please return to the ED if you experience fever over 100.4?, worsening cough , chest pain, shortness of breath, bloody vomiting, black or tarry stools, or any new/worsening / concerning symptoms. Prescriptions: No Action multivitamin Tablet 1 tab PO DAILY atenolol 25 mg Tablet 25 mg PO DAILY atorvastatin 40 mg Tablet 40 mg PO DAILY Qty: 90 0RF clopidogrel 75 mg Tablet 75 mg PO DAILY Qty: 90 0RF aspirin 81 mg Tablet,Delayed Release (Dr/Ec) 81 mg PO DAILY Qty: 90 0RF famotidine 40 mg tablet 40 mg PO DAILY Qty: 90 0RF cholecalciferol (vitamin D3) 50 mcg (2,000 unit) capsule 50 mcg PO DAILY Interventions: ED Discharge Assessment Last Done: 02/25/25 11:51 Discharge Date/Time: 02/25/25 11:52 Print Language: [place] Citizen
[2025-02-25 11:33] LABS: Appearance Urine Clear; Color Urine Yellow; Glucose Urine UA Negative (Negative); Leukocyte Esterase Urine Negative (Negative); Nitrite Urine Negative (Negative); Specific Gravity - Urine >= 1.030 (1.005-1.025); UMIC TRIGGER UACC YES; Urine Blood Negative (Negative); Urine Ketones Trace mg/dL (Negative); Urine Protein 30 (1+) mg/dL (Neg-Trace)
--- NOTE | 2025-02-25 11:36 | ED.GENADULT ---
HPI - General Adult General Chief complaint: Upper Respiratory Symptoms Stated complaint: bodyaches Time Seen by Provider: 02/25/25 11:35 Source: patient and family ( at bedside corroborating history) Mode of arrival: ambulatory Limitations: no limitations History of Present Illness ED Provider: Kassidy Steward PA-C HPI narrative: 69-year-old male with medical history of HTN, HLD, s/p thyroidectomy one week ago at [facility] presents to the ED due to 5 days of fever, chills, myalgia, sore throat, dry cough. Patient states he woke up Sunday morning feeling ?run down? states he is still not feeling well. States he has not been taking any medications to control his symptoms. Denies any recent sick contacts, recent travel. Denies chest pain, shortness of breath, nausea, vomiting, diarrhea, black or tarry stool. MD complaint: myalgia Onset (ago): day(s) (5) Treatments prior to arrival: none Related Data Home Medications ?Medication ?Instructions ?Recorded ?Confirmed atenolol 25 mg tablet 25 mg PO DAILY 03/14/24 03/14/24 multivitamin 1 tab PO DAILY 03/14/24 03/14/24 cholecalciferol (vitamin D3) 50 50 mcg PO DAILY 07/29/24 mcg (2,000 unit) capsule Previous Rx's ?Medication ?Instructions ?Recorded aspirin 81 mg tablet,delayed 81 mg PO DAILY #90 tabs 03/16/24 release atorvastatin 40 mg tablet 40 mg PO DAILY #90 tabs 03/16/24 clopidogrel 75 mg tablet 75 mg PO DAILY #90 tabs 03/16/24 famotidine 40 mg tablet 40 mg PO DAILY #90 tabs 03/16/24 Allergies Allergy/AdvReac Type Severity Reaction Status Date / Time No Known Allergies Allergy Verified 02/25/25 08:33 Review of Systems Review of Systems: CONST: POS for fever, body aches and chills. HENT: Negative for neck pain/stiffness, headache, congestion, swelling. POS sore throat EYES: Negative for discharge/pain or vision changes. RESP: Negative for hemoptysis and shortness of breath. POS dry cough CV: Negative chest pain, difficulty breathing, palpitations. ABD: Negative pain, nausea, vomiting. : Negative increase frequency, dysuria, blood in urine or stool. MUSC: Negative for edema. POS myalgia SKIN: Negative rash, lesions/sores. NEURO: Negative headache, dizziness, weakness. Yes all other systems are reviewed and are negative [facility] Past Medical History Attestation statement: The following information was validated with the patient. Source: old records reviewed, obtained from family ( at bedside) and nursing notes reviewed Medical History Hypercalcemia Cerebral infarction Carpal tunnel syndrome Hyperlipidemia HTN (hypertension) Surgical History No pertinent past surgical history Family History Family History Mother History of hypertension Hypercholesteremia Father Heart disease CAD (coronary artery disease) of artery bypass graft Social History Social History Household Members: Spouse, Family and Children Housing: House Do you presently have visiting nurse or other home services: No Patient Tobacco Use Status: Never used Tobacco service: No Physical Exam ED Vital Signs: Vital Signs - 24 hr 02/25/25 08:32 02/25/25 11:04 02/25/25 11:51 Temperature 98.0 F 97.9 F 97.9 F Pulse Rate 91 83 83 Respiratory Rate 18 18 18 Blood Pressure 120/69 129/71 129/71 Pulse Oximetry 97 99 99 Oxygen Delivery Method Room Air Room Air Room Air BMI result Body Mass Index 20.5 Medical Decision Making Medical Decision Making MDM Narrative: 69-year-old male with medical history of HTN, HLD, s/p thyroidectomy one week ago at [facility] presents to the ED due to 5 days of fever, chills, myalgia, sore throat, dry cough. Patient states he woke up Jovanni morning feeling ?run down? states he is still not feeling well. States he has not been taking any medications to control his symptoms. VSS, in no acute distress, nontoxic appearing, speaking in full sentences. Physical exam benign, oropharynx clear without uvular edema, no erythema or exudates noted, neurologically intact with no deficits. Patient is afebrile in the department. Chest x-ray negative for consolidations or concern of pneumonia-pneumonia less likely. Viral swabs flu/RSV/COVID negative. Rapid strep negative. UA negative for concerns of infection. Tick panel ordered in triage patient will be called with results. At the same suspect viral illness. Patient counseled on supportive care including hydration, nutrition, rest, alternating Tylenol and Motrin every 6 hours for pain relief and fever. Strict return precautions discussed with patient and his . Differential Diagnosis Differential Diagnoses: The differential diagnosis associated with the presentation includes Flu COVID viral illness pharyngitis pneumonia Admission/Observation Consideration of admission/observation: Escalation of care including admission/observation considered Lab Data MDM Lab Attestation statement: I reviewed the patient's lab results. 02/25/25 08:43 02/25/25 08:43 Labs: Lab Results 02/25/25 02/25/25 Range/Units 08:43 11:25 WBC 6.3 (4.8-10.8) X10*3/uL RBC 4.26 L (4.60-5.80) X10*6/uL Hgb 13.6 L (14.0-18.0) g/dl Hct 39.9 L (42.0-52.0) % MCV 93.7 (80.0-98.0) fL MCH 31.9 (27.0-33.0) pg MCHC 34.1 (31.0-36.0) g/dl RDW 12.3 (11.0-16.0) % Plt Count 269 (160-400) X10*3/uL MPV 10.6 (9.4-12.4) fL Immature Gran % (Auto) 0.2 (0.0-0.4) % Neut % (Auto) 83.6 H (45-73) % Lymph % (Auto) 8.8 L (20-40) % Mcmullen % (Auto) 6.6 (2-11) % Eos % (Auto) 0.5 (0-4) % Baso % (Auto) 0.3 (0-2) % Lymph # (Auto) 0.6 L (1.2-4.9) X10*3/uL Mcmullen # (Auto) 0.4 (0.1-1.2) X10*3/uL Eos # (Auto) 0.0 (0.0-0.4) X10*3/uL Baso # (Auto) 0.0 (0.0-0.2) X10*3/uL Abs Immat Gran (auto) 0.01 (0.00-0.03) X10*3/uL Absolute Neuts (auto) 5.3 (2.0-8.3) x10*3/uL Absolute Nucleated RBC 0.000 (0.0-0.012) X10*3/uL Nucleated RBC % (auto) 0.0 (0.0-0.2) /100WBC Sodium 139 (135-145) mmol/L Potassium 4.0 (3.3-5.1) mmol/L Chloride 106 (96-108) mmol/L Carbon Dioxide 27 (22-29) mmol/L Anion Gap 10 L (12-20) BUN 22 H (9-16) mg/dL Creatinine 1.21 (0.5-1.4) mg/dL Estim Creat Clear Calc 51.2 Estimated GFR 59 Random Glucose 127 H (60-115) mg/dL Calcium 8.8 D (8.4-10.2) mg/dL TSH 0.02 L (0.32-4.0) uIU/mL Free T4 1.04 (0.71-1.85) ng/dL Urine Color Yellow Urine Appearance Clear Urine pH 6.0 (5.0-9.0) Ur Specific [place] >= 1.030 H (1.005-1.025) Urine Protein 30 (1+) H (Neg-Trace) mg/dL Urine Glucose (UA) Negative (Negative) mg/dL Urine Ketones Trace (Negative) mg/dL Urine Blood Negative (Negative) Urine Nitrite Negative (Negative) Ur Leukocyte Esterase Negative (Negative) Urine RBC 0-2 (0-2) /HPF Urine WBC 0-5 (0-5) /HPF Ur Squamous Epith Cells 0-2 (0-2) /HPF Urine Bacteria None Seen (None Seen) Hyaline Casts 0-2 (0-2) /LPF Influenza Type A (PCR) NEGATIVE (Negative) Influenza Type B (PCR) NEGATIVE (Negative) RSV RNA Qual (PCR) NEGATIVE (Negative) SARS-CoV-2 RNA (RT-PCR) NEGATIVE (Negative) S. pyogenes GrpA PAULINO Negative (Negative) Independent Interpretation I performed an independent interpretation of an: Plain X-Ray Interpretation: I independently interpreted the x-ray and agree with the radiologist's findings Radiology Impression Discussion of test interpretation with radiology: I have reviewed the radiologist's reading. Radiologist Impression: FINDINGS: A single PA view of the chest is submitted. The lungs are expanded and clear. There is no pleural effusion, pneumothorax, or pulmonary vascular congestion. The heart is normal in size. There is mild dextroscoliosis of the spine. XR/XR chest 1V IMPRESSION: Clear lungs. Electronically signed by: Ki Vicente MD 02/25/2025 09:15 AM EDT RP Independent Historian Clinical information obtained from an independent historian. History obtained from or confirmed by: Spouse ( at bedside) External Record Review External record reviewed: Inpatient record, Office record and Outpatient record Discharge Plan Discharge Clinical Impression: Viral illness Patient Disposition: Home, Self-Care Instructions: Viral Syndrome (ED) Additional Instructions: You were evaluated in the ED today due to body aches, cough and chills. Your lab work did not show any concerns for infection. Your chest x-ray did not show any infectious process or pneumonia. Your viral swabs for COVID/flu/ RSV, and strep were all negative. We are awaiting urine, and tick panel to result. If positive we will call you and get you started on treatment if needed. You should get plenty of fluids to maintain hydration, Eat nutritious foods, get plenty of rest. Please follow up with your PCP to ensure improvement. You can alternate Tylenol and Motrin every 6 hours for pain control. Please return to the ED if you experience fever over 100.4?, worsening cough , chest pain, shortness of breath, bloody vomiting, black or tarry stools, or any new/worsening / concerning symptoms. Prescriptions: No Action multivitamin Tablet 1 tab PO DAILY atenolol 25 mg Tablet 25 mg PO DAILY atorvastatin 40 mg Tablet 40 mg PO DAILY Qty: 90 0RF clopidogrel 75 mg Tablet 75 mg PO DAILY Qty: 90 0RF aspirin 81 mg Tablet,Delayed Release (Dr/Ec) 81 mg PO DAILY Qty: 90 0RF famotidine 40 mg tablet 40 mg PO DAILY Qty: 90 0RF cholecalciferol (vitamin D3) 50 mcg (2,000 unit) capsule 50 mcg PO DAILY Interventions: ED Discharge Assessment Last Done: 02/25/25 11:51 Discharge Date/Time: 02/25/25 11:52 Print Language: Greenlandic
[2025-02-25 11:40] LABS: Bacteria Urine None Seen (None Seen); Hyaline Casts Urine 0-2 /LPF (0-2); RBC Urine 0-2 /HPF (0-2); Squamous Epithelial Cell Urine 0-2 /HPF (0-2); WBC Urine 0-5 /HPF (0-5)
[2025-02-25 11:41] LABS: IDNOW Serial# 58CA691E; Strep A Nucleic Acid Negative (Negative)
[2025-02-25 11:42] LABS: TSH reflex Free T4 0.02 uIU/mL (0.32-4.0)
[2025-02-25 11:51] VITALS: BP 129/71; PULSE 83; RESP 18; TEMP 36.6; O2SAT 99
[2025-02-25 12:23] LABS: Free T4 (Free Thyroxine) 1.04 ng/dL (0.71-1.85)
[2025-02-26 05:13] LABS: Lyme Abs Screen <0.90 index
[2025-02-26 21:19] LABS: A. Phagocytphilium DNA,RT-PCR NOT DETECTED (NOT DETECTED); Babesia Microti DNA, RT-PCR NOT DETECTED (NOT DETECTED); Borrelia Miyamotoi,DNA RT-PCR NOT DETECTED (NOT DETECTED); E.Chaffeensis DNA RT-PCR NOT DETECTED (NOT DETECTED); Lyme(Borrelia ssp)DNA RT-PCR NOT DETECTED (NOT DETECTED)
== END 2025-02-25 11:52 | disposition home or self-care (01) ==
PROVIDERS: Emergency Medicine; Emergency Provider Emergency Medicine Emergency Medical Services; PCP Internal Medicine
DX: B34.9 Viral infection, unspecified (principal); R50.9 Fever, unspecified; R05.9 Cough, unspecified; Z03.818 Encounter for observation for suspected exposure to other biological agents ruled out; I10 Essential (primary) hypertension; E78.5 Hyperlipidemia, unspecified; J02.9 Acute pharyngitis, unspecified; Z86.73 Personal history of transient ischemic attack (TIA), and cerebral infarction without residual deficits; Z79.02 Long term (current) use of antithrombotics/antiplatelets; Z79.899 Other long term (current) drug therapy
CPT/HCPCS: 0241U; 71045; 80048; 81001; 84439; 84443; 85025; 86617; 86618; 87468; 87469; 87478; 87484; 87651; 87798; 99282; 99283

== ENCOUNTER 2025-03-10 09:39 | Outpatient (AMB) | payer BC, SELFPAY ==
--- NOTE | 2025-03-10 09:45 | A.OFFPC_ITS ---
Vital Signs 03/10/25 09:46 Height 5 ft 10 in Weight 141 lb BMI 20.2 BP 117/61 Respiration 14 Pulse 78 Pulse Source Pulse Oximeter Temp 97.6 F Temp Source Temporal Artery Scan Pulse Oximetry (%) 99 Oxygen Delivery Method Room Air Intake Visit Reasons: follow up Teletype Or [place] Keyboard Operator Required: No Accompanied by: Self / Same As Patient Allergies No Known Allergies Allergy (Verified 03/10/25 09:47) Tobacco use date assessed: 03/10/25 Fall risk assessment: No Falls in past year Last assessed Fall Risk: 03/10/25 Dental Screening Dental Screen Date: 03/10/25 Did you have a dental visit in the last 12 months?: Yes Did you have a dental problem in the last 6 months where you did not have access to dental care?: No Was dental information given to patient?: Patient has dentist (partial dentures) [facility] Medical History Hypercalcemia Cerebral infarction Carpal tunnel syndrome Hyperlipidemia HTN (hypertension) Surgical History History of colonoscopy (~01/30/19) No pertinent past surgical history Family History Mother History of hypertension Hypercholesteremia Father Heart disease CAD (coronary artery disease) of artery bypass graft Social History (Updated 03/10/25 @ 09:53 by SAM Sheikh) Household Members: Spouse, Family and Children Housing: House Do you presently have visiting nurse or other home services: No Alcohol intake: current Alcohol intake frequency: does not drink Patient Tobacco Use Status: Never used Tobacco service: No Current occupational status: employed Cognitive needs: No Hearing needs: No Vision needs: Yes (reading glasses) Questionnaire PHQ-9 Over the last 2 weeks, how often have you been bothered by any of the following problems? 1. Little interest or pleasure in doing things: not at all 2. Feeling down, depressed, or hopeless: not at all 3. Trouble falling or staying asleep, or sleeping too much: not at all 4. Feeling tired or having little energy: not at all 5. Poor appetite or overeating: not at all 6. Feeling bad about yourself - or that you are a failure or have let yourself or your family down: not at all 7. Trouble concentrating on things, such as reading the newspaper or watching television: not at all 8. Moving or speaking so slowly that other people could have noticed. Or the opposite - being so fidgety or restless that you have been moving around a lot more than usual: not at all 9. Thoughts that you would be better off or of hurting yourself in some way: not at all Total score: 0 Source: Developed by Drs. Ki Almendarez, Alida Lee, Casimiro Gipson and colleagues, with an educational mario from [employer]. Thrive Questionnaire Date Thrive assessed: 03/10/25 I am a: Patient What is your living situation today?: I have a steady place to live Within the past 12 months, did the food you bought not last and you didn't have the money to get more?: Never true Within the past 12 months, did you worry whether your food would run out before you got money to buy more?: Never true Do you have trouble paying for medicines?: No Do you have trouble getting transportation to medical appointments?: No Do you have trouble paying your heating and electricity bill?: No Do you have trouble taking care of your child, family member or friend?: No Do you have trouble with day-to-day activities such as bathing, preparing meals, shopping, managing finances, etc.?: No Are you currently unemployed and looking for a job?: No Are you interested in more education?: No Please select the resources that you would like help with: None THRIVE Score: 0 AUDIT C Alcohol Use Questionnaire (AUDIT-C) 1. How often do you have a drink containing alcohol?: Never 3. How often do you have six or more drinks on one occasion?: Never Total Score: 0 AWAIS-7 AMB Questionnaire AWAIS-7 Date AWAIS - 7 assessed: 03/10/25 Feeling nervous, anxious, or on edge: 0 = Not at all Not being able to stop or control worryin = Not at all Worrying too much about different things: 0 = Not at all Trouble relaxin = Not at all Being so restless that it is hard to sit still: 0 = Not at all Becoming easily annoyed or irritable: 0 = Not at all Feeling afraid as if something awful might happen: 0 = Not at all Total AWAIS-7 score (0-4 normal; 5-9 mild; 10-14 moderate; 15-21 severe): 0 Source: Developed by Drs. Ki Almendarez, Alida Lee, Casimiro Gipson and colleagues, with an educational mario from [employer]. Physical exam (Primary Care) Vital Signs: Last Vital Signs Temp 97.6 F 03/10/25 09:46 Pulse 78 03/10/25 09:46 Resp 14 03/10/25 09:46 BP 117/61 03/10/25 09:46 Pulse Ox 99 03/10/25 09:46 Oxygen Delivery Method Room Air 03/10/25 09:46 BMI result Body Mass Index 20.2 Tobacco/Smoking Status: Tobacco use Status Tobacco use date assessed 03/10/25 03/10/25 09:53 Patient Tobacco Use Status Never used Tobacco 03/10/25 09:53 PHQ-9: PHQ-9 Score PHQ-9: Total score 0 03/10/25 09:53 Thrive Assessment: Date of Thrive Assessment Date Thrive assessed 03/10/25 03/10/25 09:53 Coding Level of Care Code New Pt Level 4 (10255) Complex EM visit Add On G2211 Diagnoses Hypercalcemia E83.52 Stroke I63.9 Assessment & Plan Assessment & Plan (1) Hypercalcemia: Code(s): E83.52 - Hypercalcemia Category: Medical Plan: Condition is stable, s/p parathyroidectomy. Calcium on bw is in normal range. (2) Stroke: Code(s): I63.9 - Cerebral infarction, unspecified Category: Medical Plan: Condition is stable Plan History of Present Illness - The patient is a 69-year-old male presenting for a routine follow-up and preventative care visit. - Hypercalcemia and parathyroid disorder were previously identified, and the patient was under the care of Dr. Silva for these conditions. - The patient was taking calcium supplements, which were later reduced, and the last update indicated stabilization of the condition. - Blood work was conducted twice, once in August and once in January, with the August results showing normal cholesterol levels. 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 - Preventative care includes a colonoscopy performed approximately a year and a half ago, with records available from Dr. Bailey or Dr. Tao. Social History - Employment: The patient owns and operates a pharmacy, indicating active employment and no assisted. Review of Systems - Vision: Reports good vision, no halos around lights, and drives at night without issues. - Gastrointestinal: Denies abdominal pain. Physical Exam General: Cooperative and healthy appearing Nutritional Appearance: Well nourished Orientation/consciousness: Patient oriented x3 Limitations: No limitations Head: Normal to inspection General: Appearance normal, both eyes and all related structures Neck: Normal visual inspection Chest: Normal palpation of entire chest wall Respiratory: N ormal respiratory effort Neurology: Patient oriented x3, vision pretty good, no halos around lights Results - Labs: August blood work showed normal cholesterol levels. Plan 1. Hypercalcemia - Continue monitoring calcium levels and adjust supplements as needed. 2. Parathyroid Disorder - Follow-up with Dr. Silva for ongoing management and evaluation. 3. Preventative Care: Colonoscopy - Review records from Dr. Bailey or Dr. Tao to confirm the date and results of the last colonoscopy. Discussion Notes During the visit, we discussed the patient's history of hypercalcemia and parathyroid disorder, emphasizing the importance of regular monitoring and follow-up with Dr. Silva. We also reviewed the patient's preventative care measures, including the need to verify the date and results of the last colonoscopy with Dr. Bailey or Dr. Tao. Patient Instructions - Continue taking prescribed medications and adjust calcium supplements as advised by your healthcare provider. - Schedule a follow-up appointment with Dr. Silva for parathyroid management. - Ensure to review and confirm the date and results of your last colonoscopy with Dr. Bailey or Dr. Tao.
[2025-03-10 09:46] VITALS: BP 117/61; PULSE 78; RESP 14; TEMP 36.4; O2SAT 99; BMI 20.2
== END 2025-03-10 10:04 | disposition home or self-care (01) ==
LOC: HO.HMCSH 09:39
PROVIDERS: PCP Internal Medicine; Visit Provider Internal Medicine
DX: E83.52 Hypercalcemia (principal); I63.9 Cerebral infarction, unspecified

== ENCOUNTER → 2025-03-10 09:39 | Outpatient (BNVA) | payer BC, SELFPAY | PROVIDERS: PCP Internal Medicine; Visit Provider Internal Medicine | DX: Z13.89 Encounter for screening for other disorder (principal) ==

== ENCOUNTER 2025-07-02 08:51 | Outpatient (AMB) | payer BC, SELFPAY ==
--- NOTE | 2025-07-02 09:18 | AM.OFFVISNUR ---
Intake Visit Reasons: Flu Shot Allergies No Known Allergies Allergy (Verified 03/10/25 09:47) Nursing Note Flu vaccine given Office Procedures Flu Questionnaire Does the patient have a severe egg allergy?: No Does the patient have severe life threatening allergies?: No Does the patient have a fever or illness today?: No Has the patient ever had Guillain-Marion Syndrome?: No Has the patient ever had any past reaction to a flu shot?: No Immunizations Fluarix [id number] (PF) 45 mcg (15 mcg x 3)/0.5 mL IM syringe Performing Provider: Ne Candelaria PA-C [facility] Administered by: Jacy Dixon CMA on 07/02/25 09:19 Dose Route Admin Location Dispensed Lot Number Expiration Date [facility] Commutator Inspector 0.5 mL IM Left Deltoid 0.5 mL [id number] 03/16/25 [id number] [employer] VIS Given Date VIS Provided VIS Publication Date 07/02/25 Single Vaccine 24 Eligibility Eligibility Date Funding Source Not [facility] Eligible 07/02/25 Private Assessment & Plan Assessment & Plan Orders: Orders Influenza [id number] Immunization Today Z23 - Encounter for immunization Coding
== END 2025-07-02 09:23 | disposition home or self-care (01) ==
LOC: HO.HMCSH 08:51
PROVIDERS: PCP Internal Medicine
DX: Z23 Encounter for immunization (principal)

== ENCOUNTER → 2025-07-02 08:51 | Outpatient (BNVA) | payer BC, SELFPAY | PROVIDERS: PCP Internal Medicine | DX: Z23 Encounter for immunization (principal) | CPT/HCPCS: 90471; 90656 ==